=== PATIENT | male | born 1975 | race African-American/Black ===

== ENCOUNTER 2023-12-11 12:55 | Emergency (ER) | payer BC, SELFPAY ==
[2023-12-11 13:09] VITALS: BP 133/86; PULSE 85; TEMP 37; O2SAT 93; BMI 30.6
--- NOTE | 2023-12-11 13:22 | ED_ITS ---
HPI HPI - General Adult General Chief complaint: Upper Respiratory Infection Stated complaint: URTI COMPLAINTS Time Seen by Provider: 12/11/23 13:13 Source: patient Mode of arrival: walk-in Limitations: no limitations History of Present Illness HPI narrative: 48-year-old male presents to the emergency department for a chief complaint of congestion and cough. He is worried he has COVID. He was around somebody who was diagnosed with it. Symptoms began the night before last. No fever or productive cough. Related Data Home Medications ?Medication ?Instructions ?Recorded ?Confirmed duloxetine 60 mg capsule,delayed 60 mg PO QDAY 12/11/23 12/11/23 release empagliflozin 10 mg tablet 10 mg PO QDAY 12/11/23 12/11/23 (Jardiance) lisinopril 20 mg tablet 20 mg PO QDAY 12/11/23 12/11/23 metoprolol tartrate 50 mg tablet 50 mg PO BID 12/11/23 12/11/23 rivaroxaban 20 mg tablet (Xarelto) 20 mg PO Q24H 12/11/23 12/11/23 Allergies Allergy/AdvReac Type Severity Reaction Status Date / Time muscle relaxers Allergy Hallucinati Uncoded 12/11/23 13:06 ng Opioid HPI Opioid Management Most Recent Opioid Data: No Data to Display Review of Systems ROS Narrative A ten point review of systems is negative except as noted above. PFSH PFSH Social History Little interest or pleasure in doing things: not at all Feeling down, depressed, or hopeless: not at all Exam Narrative Exam Narrative: Nurses note and vital signs reviewed and patient is not hypoxic. General: The patient appears in no apparent distress. Patient is resting comfortably on cart. Skin: Warm, dry, no pallor noted. There is no rash noted. Head: Normocephalic, atraumatic Eye: Normal conjunctiva, no drainage Ears, Nose, Mouth, and Throat: oral mucosa is moist. Nares patent. Mild nasal congestion plus Cardiovascular: Regular Rate and Rhythm Respiratory: Patient is in no distress, no accessory muscle use, lungs are clear to auscultation, no wheezing, rales or rhonchi Back: non-tender GI: Soft and nontender Musculoskeletal: The patient has no evidence of calf tenderness, no pitting edema, symmetrical pulses noted bilaterally Neurological: A&O, normal speech Psychiatric: Cooperative Constitutional Vital Signs, click to edit/add: Last Vital Signs Temp 98.6 F 12/11/23 13:09 Pulse 85 12/11/23 13:09 Resp 16 12/11/23 13:09 BP 133/86 12/11/23 13:09 Pulse Ox 93 L 12/11/23 13:09 O2 Del Method Room Air 12/11/23 13:09 Course Vital Signs Vital signs: Vital Signs Temperature 98.6 F 12/11/23 13:09 Pulse Rate 85 12/11/23 13:09 Respiratory Rate 16 12/11/23 13:09 Blood Pressure 133/86 12/11/23 13:09 Pulse Oximetry 93 L 12/11/23 13:09 Oxygen Delivery Method Room Air 12/11/23 13:09 Temperature 98.6 F 12/11/23 13:09 Pulse Rate 85 12/11/23 13:09 Respiratory Rate 16 12/11/23 13:09 Blood Pressure 133/86 12/11/23 13:09 Pulse Oximetry 93 L 12/11/23 13:09 Oxygen Delivery Method Room Air 12/11/23 13:09 Medical Decision Making MDM Narrative Medical decision making narrative: COVID test is positive and he was informed. He is able to be discharged home. Follow-up with his doctor if needed. Treatment diagnosis and follow-up were discussed with the patient. Differential Diagnosis Differential Diagnosis: Viral URI, COVID, influenza Lab Data Lab results reviewed: Yes I reviewed the patient's lab results Labs: Lab Results 12/11/23 Range/Units 13:17 Influenza Type A Ag Negative Influenza Type B Ag Negative SARS-CoV-2 Ag (CV2AG) Positive A (NEGATIVE) Discharge Plan Discharge Chief Complaint: Upper Respiratory Infection Clinical Impression: COVID-19 Patient Disposition: Home, Self-Care Time of Disposition Decision: 14:01 Condition: Good Mode of Transportation: Private Vehicle Prescriptions / Home Meds: No Action duloxetine 60 mg capsule,delayed release(DR/EC) 60 mg PO QDAY Jardiance 10 mg tablet 10 mg PO QDAY lisinopril 20 mg tablet 20 mg PO QDAY metoprolol tartrate 50 mg tablet 50 mg PO BID Xarelto 20 mg tablet 20 mg PO Q24H Print Language: Albanian Instructions: COVID-19 (Coronavirus Disease 2019) (ED), COVID-19: Slow the Coronavirus Spread (ED), Face Coverings (Masks) and COVID-19 (ED) Referrals: Physician,Non-Staff, MD [Primary Care Provider] - 1 week
[2023-12-11 13:53] LABS: Influenza Virus A Antigen Negative; Influenza Virus B Antigen Negative; Internal Control Within Normal Limits
--- NOTE | 2023-12-11 13:53 | PC.NURSE ---
Pt reports positive covid exposure over the weekend and has x2 days of URI symptoms. Reports headache, cough, sore throat, congestion.
[2023-12-11 13:54] LABS: SARS-CoV-2 Ag POSITIVE (NEGATIVE)
[2023-12-11 14:15] VITALS: BP 136/76; PULSE 76; O2SAT 99
== END 2023-12-11 14:15 | disposition home or self-care (01) ==
PROVIDERS: Emergency Provider Emergency Medicine
DX: U07.1 COVID-19 (principal)
CPT/HCPCS: 87804; 87811; 99283

== ENCOUNTER 2024-04-14 22:43 | Emergency (ER) | payer BC, SELFPAY ==
--- OUTSIDE RECORDS SUMMARY | 2024-04-14 22:48 | XMS_ITS | CCD ---
Author Organization [facility] Care Team Providers Care Shift Supervisor Rn Name Role Phone LAURENT DELACRUZ Attending Unavailable CINDY BEE Primary Care Unavailable ARTURO HICKMAN Attending UnavailCINDY Phillips Primary Care Unavailable CINDY BEE Primary Care Unavailable ALBANIA ANNA Admitting Unavailable ALBANIA ANNA Attending Unavailable BASILIA LAZARO Consulting Unavailable SELF, REFERRED Referring Unavailable SELF, REFERRED Primary Care Unavailable MARCELLA INTERIANO Attending Unavailable MARCELLA INTERIANO Admitting Unavailable LANA SHERMAN Attending Unavailable LANA SHERMAN Admitting Unavailable Lana Sherman Unavailable Waqar Angulo Unavailable EDMOND Sherman Primary Care Provider MD Waqar Angulo Attending Provider Waqar Angulo Admitting UnavailWaqar Springer Attending UnavailLana Delgado Primary Care Unavailable Waqar Angulo Attending UnavailLana Delgado Primary Care Unavailable Waqar Angulo Admitting UnavailWaqar Springer Attending UnavailLana Delgado Primary Care Unavailable Waqar Angulo Admitting UnavailLana Delgado Primary Care Unavailable Asia Sawyer Admitting Unavailable Asia Sawyer Attending Unavailable Lana Sherman Primary Care Unavailable Tre Todd Admitting Unavailable Tre Todd Attending Unavailable Ramy LAWRENCE-Lana RAMIREZ Primary Care Provide r RAMY LANA J Primary Care Physician LANA SHERMAN Attending Unavailable RAMY, LANA Primary Care Unavailable RAMY, LANA Admitting Unavailable RAMY, LANA Admitting Unavailable RAMY, LANA Attending Unavailable RAMY, LANA Primary Care Unavailable RAMY, LANA Admitting Unavailable RAMY, LANA Attending Unavailable RAMY, LANA Primary Care Unavailable RAMY, LANA Primary Care Unavailable YENNI, NIXON DIANA Attending Unav ailable YENNI, NIXON DIANA Attending Unav ailable YENNI, NIXON DIANA Referring Unav ailable RAMY, LANA Primary Care Unavailable RAMY, LANA Primary Care Unavailable VANDANA LAMBERT Attending Unavailable LAMBERT, VANDANA Melvin Attending Unavailable LAMBERTVANDANA LLOYD Referring Unavailable RAMY, LANA Primary Care Unavailable RAMY, LANA Primary Care Unavailable IAN JONES Attending Unavailable KAREN, IAN Baez Attending Unavailable IAN JONES Referring Unavailable RAMY, LANA Primary Care Unavailable RASTA RAPP Attending Unavailable RAMY, LANA Referring Unavailable RAMY, LANA Primary Care Unavailable RASTA RAPP Referring Unavailable RAMY, LANA Primary Care Unavailable RAMY, LANA Primary Care Unavailable ROBERT EASON Attending Unavailable RAMY, LANA Primary Care Unavailable FABRICIO FELDMAN Attending Unavailabl e FRANCIA, FABRICIO [place] Attending Unavailabl e FABRICIO FELDMAN Referring Unavailabl e RAMY, LANA Primary Care Unavailable RAMY, LANA Primary Care Unavailable Allergies Allergy Classification Reported Allergen(s) Allergy Type Date of Onset Reaction(s) Facility Orphenadrine (1 source) Orphenadrine Drug Allergy [facility] Repository (12 sources) cyclobenzaprine Drug Allergy 01-29-20 13 hallucinating [facility] Repository (1 source) muscle relaxers; Translations: [muscle relaxers] Propensity to adverse reactions (disorder) 01-29-20 13 [facility] Repository (3 sources) cholesterol medication Allergy to substance 02-11-20 Muscle Pain [facility] (3 sources) muscle relaxer Allergy to substance 02-11-20 18 Hallucinating [facility] (3 sources) atorvastatin; Translations: [ATORVASTATIN CALCIUM] Drug Allergy 06-28-19 22 [facility] (3 sources) cyclobenzaprine; Translations: [CYCLOBENZAPRINE] Drug Allergy 11-26-19 17 Hallucinations [facility] Medications Current Medications Medication Drug Class(es) Dates Sig (Normalized) Sig (Original) acetaminophen 300 mg / codeine phosphate 30 mg oral tablet (3 sources) Opioid Agonist Start: 12-03-2020 take 1 tablet by mouth twice daily as needed for pain Acetaminophen-Code ine #3 300-30 MG 1 tablet Orally bid as needed for pain for 15 day(s) Nov, Active dexamethasone 4 mg oral tablet (8 sources) Corticosteroid Start: 06-13-2021 Dexamethasone 4 MG 3 tablets daily for 3 days then 2 tablets daily for 3 days then 1 tablet daily for 3 days Orally Once a day for 9 days Jun, Active diazePAM 10 mg oral tablet (11 sources) Benzodiazepine Start: 10-23-2020 diazePAM 10 MG 1 tablet Orally 30 min before MRI for 1 days Oct, Active DULoxetine 60 mg delayed release oral capsule (14 sources) Serotonin and Norepinephrine Reuptake Inhibitor Start: 04-06-2020 take 1 capsule by mouth every twenty-four hours DULoxetine HCl 30 MG 1 capsule Orally Once a day for 90 days Mar, Active Start: 04-06-2020 take 1 capsule by mo [facility] every twenty-four hours DULoxetine HCl 60 MG 1 capsule Orally Once a day for 30 days Mar, Active lisinopril 20 mg oral tablet (16 sources) Angiotensin Converting Enzyme Inhibitor Start: 02-10-2018 take 1 tablet by mouth once daily lisinopriL (PRINIVIL,ZESTRIL) 20 mg tablet Take 1 tablet (20 mg total) by mouth daily. Please have labs drawn for additional refills 30 tablet 0 09/11/2020 Active metoprolol tartrate 50 mg oral tablet (16 sources) beta-Adrenergic Cyril Start: 07-11-2021 take 1 tablet by mouth in the morning, then take 1 tablet by mouth at bedtime metoprolol tartrate (LOPRESSOR) 50 mg tablet Take 1 tablet (50 mg total) by mouth in the morning and 1 tablet (50 mg total) before bedtime. 90 tablet 3 07/11/2021 Active Start: 02-10-2018 take 25 mg by mouth twice jessica y Metoprolol Tartrate Active 25 MG PO Twice daily February 10, 2018 1:00am [facility] Test - (11 sources) Start: 10-05-2020 [facility] Test - as directed In Vitro daily for 90 days Sep, Active rivaroxaban 20 mg oral tablet (14 sources) Factor Xa Inhibitor Start: 09-16-2019 take 1 tablet by mouth once daily rivaroxaban (XARELTO) 20 mg tablet tablet Take 1 tablet (20 mg total) by mouth daily. 30 tablet 1 09/16/2019 Active Start: 07-30-2019 take 1 tablet by mouth once da dimas Xarelto 20 20 1 tablet PO Daily for 90 days July, Active True Metrix Blood Glucose Te st - (11 sources) Start: 10-05-2020 True Metrix Bl ood Glucose Test - as directed SQ bid for 30 day(s) Sep, Active True Metrix Meter w/Device (11 sources) Start: 10-05-[address] w/Device as directed SQ bid for 30 day(s) Sep, Active Completed/Discontinued Medications Medication Drug Class(es) Dates Sig (Normalized) Sig (Original) aspirin 81 mg chewable tablet (3 sources) Platelet Aggregation Inhibitor, Nonsteroidal Anti-inflammatory Drug Start: 02-10-2018 End: 12-17-2021 take 81 mg by mouth once daily Aspirin Discontinued 81 MG PO Daily February 10, 2018 1:00am December 17, 2021 7:37am fluticasone propionate 0.05 mg/actuat metered dose nasal spray (14 sources) Corticosteroid Start: 09-19-2019 take 1 spray(s) nasal route once daily Fluticasone Propionate 50 MCG/ACT 1 spray in each nostril Nasally Once a day for 90 days Sep, Not-Taking Start: 02-10-2018 End: 12-17-2021 Fluticasone Propionate Disco ntinued 50 MCG INTRANASAL Daily February 10, 2018 1:00am December 17, 2021 7:37am gabapentin 100 mg oral capsule (11 sources) Anti-epileptic Agent Start: 11-07-2019 take 1 capsule by mouth every twelve hours Gabapentin 100 MG 1 capsule Orally twice a day for 10 days Oct, Not-Taking meclizine hydrochloride 25 mg oral tablet (2 sources) Antiemetic Start: 01-28-2023 End: 03-23-2023 take 1 tablet by mouth three times daily as needed for dizziness meclizine (ANTIVERT) 25 mg tablet Take 1 tablet (25 mg total) by mouth 3 (three) times a day as needed for dizziness. 20 tablet 0 01/28/2023 03/23/2023 Discontinued (Therapy completed) 24 hr metFORMIN hydrochloride 500 mg extended release oral tablet (11 sources) Biguanide Start: 05-22-2020 take 1 tablet by mouth every twenty-four hours metFORMIN HCl ER 500 MG 1 Tablet BID w Food Once a day for 30 day(s) May, Not-Taking methylPREDNISolone acetate 80 mg/ml injectable suspension (16 sources) Corticosteroid Start: 10-09-2020 DEPO-Medrol Oct, 80 mg Start: 10-09-2020 Depo-Medrol 80 mg Oct, 80 mg Start: 11-21-2019 Depo-Medrol 20 mg Nov, 60 mg omeprazole 40 mg delayed release oral capsule (11 sources) Proton Pump Inhibitor Start: 2018 take 1 capsule by mouth every twenty-four hours Omeprazole 40 MG 1 capsule Orally Once a day for 90 days Apr, Not-Taking ondansetron 4 mg disintegrating oral tablet (2 sources) Serotonin-3 Receptor Antagonist Start: 01-28-2023 End: 03-23-2023 take 1 tablet by mouth every eight hours as needed for nausea ondansetron ODT (ZOFRAN ODT) 4 mg disintegrating tablet Dissolve 1 tablet (4 mg total) on tongue every 8 (eight) hours as needed for nausea for up to 10 doses. 10 tablet 0 01/28/2023 03/23/2023 Discontinued (Therapy completed) pioglitazone 15 mg oral tablet (11 sources) Peroxisome Proliferator Receptor alpha Agonist, Peroxisome Proliferator Receptor gamma Agonist, Thiazolidinedione Start: 05-22-2020 Actos 15 MG 1 tablet Orally at night for 30 day(s) May, Not-Taking sertraline 100 mg oral tablet (11 sources) Serotonin Reuptake Inhibitor take 1 tablet by mouth once daily Sertraline HCl 100 MG TAKE 1 TABLET BY MOUTH EVERY DAY Not-Taking simethicone 125 mg chewable tablet (3 sources) Start: 02-16-2018 End: 12-17-2021 take 4 tablets by mouth once daily Simethicone (Gas-X Extra Strength) 125 mg Tablet,Chewable Discontinued 4 TAB PO Daily February 16, 2018 1:00am December 17, 2021 7:38am Wrist Brace - (11 sources) Start: 11-21-2019 Wrist Brace - as directed 14 Nov, 2019 Not-Taking Problems Active Problems Problem Classification Problem Date Documented Da te Episodic/Chronic Anxiety disorders (15 sources) Anticipatory anxiety; Translations: [Generalized anxiety disorder] Onset: 01-03-2021 Resolved: 10-21-2021 Chronic Cardiac dysrhythmias (12 sources) Atrial fibrillation; Translations: [Unspecified atrial fibrillation] Onset: 07-10-2021 Resolved: 07-29-2021 Chronic Diabetes mellitus without complication (12 sources) Type 2 diabetes mellitus without complication; Translations: [Type 2 diabetes mellitus without complications] Onset: 01-03-2021 Resolved: 01-03-2021 Chronic Disorders of lipid metabolism (4 sources) Hyperlipidemia; Translations: [Hyperlipidemia, unspecified] Onset: 05-13-2017 05-13-2017 Chronic Esophageal disorders (11 sources) Acid reflux; Translations: [Gastro-esophageal reflux disease without esophagitis] Chronic Essential hypertension (20 sources) Essential hypertension; Translations: [Essential (primary) hypertension] Onset: 06-08-2017 Resolved: 10-21-2021 Chronic Nonspecific chest pain (2 sources) Chest pain; Translations: [Chest pain, unspecified] 05-13-2017 Episodic Other gastrointestinal disorders (14 sources) Dysphagia; Translations: [Dysphagia, unspecified] 02-16-2018 Episodic Other gastrointestinal disorders (11 sources) Constipation; Translations: [Constipation, unspecified] Episodic Other gastrointestinal disorders (1 source) Stool DNA-based colorectal cancer screening positive; Translations: [Other fecal abnormalities] 12-17-2021 Episodic Other gastrointestinal disorders (2 sources) Other fecal abnormalities; Translations: [Abnormal feces] Onset: 12-17-2021 12-17-2021 Episodic Other nervous system disorders (11 sources) Carpal tunnel syndrome; Translations: [Carpal tunnel syndrome, bilateral upper limbs] Chronic Other nervous system disorders (8 sources) Carpal tunnel syndrome of left wrist; Translations: [Carpal tunnel syndrome, left upper limb] Chronic Other nervous system disorders (1 source) Carpal tunnel syndrome, bilateral upper limbs Onset: 06-13-2021 Resolved: 06-13-2021 Chronic Other nervous system disorders (2 sources) Carpal tunnel syndrome of right wrist; Translations: [Carpal tunnel syndrome, right upper limb] Onset: 11-30-2009 07-10-2021 Chronic Other upper respiratory disease (11 sources) Rhinitis; Translations: [Chronic rhinitis] Chronic Spondylosis; intervertebral disc disorders; other back problems (17 sources) Prolapsed cervical intervertebral disc; Translations: [Other cervical disc displacement, unspecified cervical region] Onset: 06-13-2021 Resolved: 06-13-2021 Chronic Unclassified (1 source) Cold Like Symptoms Onset: 05-11-2023 Unclassified (1 source) Cold Symptoms Onset: 05-11-2023 Unclassified (1 source) Low back pain, unspecified; Translations: [Low back pain, unspecified] Onset: 04-11-2023 Viral infection (1 source) COVID-19; Translations: [COVID-19] Onset: 12-10-2023 Past or Other Problems Problem Classification Problem Date Documented Date Episodic/Chronic Abdominal pain (1 source) Epigastric pain; Translations: [Epigastric pain] Onset: 4 Episodic Cardiac dysrhythmias (2 sources) Palpitations; Translations: [Palpitations] Onset: 8 05-14-2017 Episodic Conditions associated with dizziness or vertigo (2 sources) Dizziness; Translations: [Dizziness and giddiness] Onset: 8 05-14-2017 Episodic Coronary atherosclerosis and other heart disease (2 sources) Coronary arteriosclerosis; 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] Onset: 8 Resolved: 8 05-14-2017 Chronic Nausea and vomiting (2 sources) Nausea; Translations: [Nausea] Onset: 4 Episodic Other lower respiratory disease (1 source) Cough Onset: 4 Episodic Other lower respiratory disease (1 source) Shortness of breath; Translations: [Shortness of breath] Onset: 4 Episodic Other non-traumatic joint disorders (1 source) Pain in left shoulder; Translations: [Arthralgia of left acromioclavicular joint M25.512] Onset: 1 Resolved: 1 Episodic Pneumonia (except that caused by tuberculosis or sexually transmitted disease) (1 source) Pneumonia, unspecified organism; Translations: [Pneumonia, unspecified organism] Onset: 4 Episodic Spondylosis; intervertebral disc disorders; other back problems (10 sources) Cervical disc prolapse with radiculopathy; Translations: [Cervical disc disorder with radiculopathy, unspecified cervical region] Onset: 4 Episodic Results Test Name Value Interpretation Reference Range Facility SARS[facility]FL[facility] SARS/FLU A+B/RSV by NAAT/Molecular FLU A PCR Negative (qualifier value) FLU B PCR Negative (qualifier value) RSV by PCR Negative (qualifier value) SARS CoV 2 Detected (qualifier value) NOTE The Xpert Xpress SARS-CoV-2/Flu/RSV Plus test is a rapid, multiplexed real-time RT-PCR test intended for the simultaneous qualitative detection and differentiation of SARS-CoV-2, influenza A, influenza B and respiratory syncytial virus (RSV) viral RNA from individuals suspected of respiratory viral infection consistent with COVID-19 by their healthcare provider. This test has not been validated in asymptomatic patients. The Xpert Xpress SARS-CoV-2 test is intended for use by qualified and trained operators who are performing tests using either [employer] or [employer] systems and is limited to laboratories that meet the CLIA requirements to perform high and moderate complexity tests. The Xpert Xpress SARS-CoV-2/Flu/RSV Plus is only for use under the Food and Drug Administration's Emergency Use Authorization. Results are for the simultaneous detection and differentiation of SARS-CoV-2, influenza A, influenza B and RSV nucleic acids in clinical specimens. SARS-CoV-2, influenza A, influenza B and RSV RNA identified by this test are generally detectable in upper respiratory samples during the acute phase of infection. Positive results are indicative of the presence of the identified virus, but do not rule out bacterial infection or co-infection with other pathogens not detected by this test. Clinical correlation with patient history and other diagnostic information is necessary to determine patient infection status. The agent detected may not be the definite cause of disease. Negative results do not preclude SARS-CoV-2, influenza A, influenza B and RSV infection and should not be used as the sole basis for treatment or other patient management decisions. Negative results must be combined with clinical observations, patient history and epidemiological information. An Invalid result may occur with specimen-associated inhibition unable to be resolved with specimen repeat. Fact Sheet for Healthcare Providers: https://www.fda.gov/ media/386660/downloa d Fact Sheet for Patients: https://www.fda.gov/ media/218681/downloa d [facility] Comment on above: Performed By: #### N UM #### [facility] ([id number]) [address] [place] [address] XR CHEST 1 VWon 12-10-2023 XR CHEST 1 VW XR CHEST 1 VW Clinical history: Cough Views: 1 Comparison: 05/22/2023 Findings/Impression: 1. No acute infiltrate. No volume loss nor consolidation. There is no pleural effusion, pneumothorax, nor volume loss. Heart and mediastinal structures are unremarkable. Pulmonary vasculature stable. 2. Interval resolution of previously present nodular opacities overlying the each lung. 3. No new nor advancing abnormality. Finalized by Ministerio Abebe MD on 12/10/2023 6:05 PM Normal [facility] CMPon 12-01-2023 Albumin [Mass/Vol] 4.3 g/dL Normal 3.3-5.0 [facility] Comment on above: Performed By: #### 2 [id number] #### [facility] [address] [place] [address] Albumin/Globulin (S) [Mass conc ratio] 1.7 Normal 1.1-2.2 [facility] Comment on above: Performed By: #### 2 [id number] #### [facility] [address] [place] [address] ALP [Catalytic activity/Vol] 66 Int._Unit/L Normal 21-98 [facility] Comment on above: Performed By: #### 2 [id number] #### [facility] [address] [place] [address] ALT No additional P-5'-P [Catalytic activity/Vol] 40 Int._Unit/L Normal 6-46 [facility] Comment on above: Performed By: #### 2 [id number] #### [facility] [address] [place] [address] Anion gap [Moles/Vol] 10 mmol/L Normal 6-16 [facility] Comment on above: Performed By: #### 2 [id number] #### [facility] [address] [place] [address] AST [Catalytic activity/Vol] 24 Int._Unit/L Normal 5-43 [facility] Comment on above: Performed By: #### 2 [id number] #### [facility] [address] [place] [address] Bilirubin [Mass/Vol] 0.4 mg/dL Normal 0.0-1.1 [facility] Comment on above: Performed By: #### 2 [id number] #### [facility] [address] [place] [address] Calcium [Mass/Vol] 8.7 mg/dL Low 8.9-11.1 [facility] Comment on above: Performed By: #### 2 [id number] #### [facility] [address] [place] [address] Chloride [Moles/Vol] 103 mmol/L Normal 101-111 [facility] Comment on above: Performed By: #### 2 [id number] #### [facility] [address] [place] [address] CO2 [Moles/Vol] 27 mmol/L Normal 21-31 [facility] Comment on above: Performed By: #### 2 [id number] #### [facility] [address] [place] [address] Creatinine [Mass/Vol] 0.9 mg/dL Normal 0.5-1.3 [facility] Comment on above: Performed By: #### 2 [id number] #### [facility] [address] [place] [address] Globulin (S) [Mass/Vol] 2.5 g/dL Normal 1.4-4.0 [facility] Comment on above: Performed By: #### 2 [id number] #### [facility] [address] [place] [address] Glucose [Mass/Vol] 181 mg/dL Normal 55-199 [facility] Comment on above: Performed By: #### 2 [id number] #### [facility] [address] [place] [address] Potassium [Moles/Vol] 4.0 mmol/L Normal 3.5-5.3 [facility] Comment on above: Performed By: #### 2 [id number] #### [facility] [address] [place] [address] Protein [Mass/Vol] 6.8 g/dL Normal 6.0-7.8 [facility] Comment on above: Performed By: #### 2 [id number] #### [facility] [address] [place] [address] Sodium [Moles/Vol] 136 mmol/L Normal 135-145 [facility] Comment on above: Performed By: #### 2 [id number] #### [facility] [address] [place] [address] Urea nitrogen [Mass/Vol] 11 mg/dL Normal 5-21 [facility] Comment on above: Performed By: #### 2 [id number] #### [facility] [address] [place] [address] Urea nitrogen/Creatinine [Mass ratio] 12 No Units Normal 10-20 [facility] Comment on above: Performed By: #### 2 [id number] #### [facility] [address] [place] [address] Lipid Panelon 12-01-2023 Cholesterol [Mass/Vol] 205 mg/dL High 120-200 [facility] Comment on above: Performed By: #### 2 [id number] #### [facility] [address] [place] [address] Cholesterol in HDL [Mass/Vol] 43 mg/dL Invalid Interpretation Code [facility] Comment on above: Result Comment: '>= 60 LOW RISK' '<= 40 HIGH RISK' Performed By: #### 2 [id number] #### [facility] [address] [place] [address] Cholesterol in LDL [Mass/Vol] 130 mg/dL High <=129 [facility] Comment on above: Performed By: #### 2 [id number] #### [facility] [address] [place] [address] Cholesterol in VLDL [Mass/Vol] 55 mg/dL High 7-40 [facility] Comment on above: Performed By: #### 2 [id number] #### [facility] [address] [place] [address] Triglyceride [Mass/Vol] 273 mg/dL High <=149 [facility] Comment on above: Performed By: #### 2 [id number] #### [facility] [address] [place] [address] eGFRon 12-01-2023 eGFR 105 mL/min/1.73 m2 Normal >=59 [facility] Comment on above: Performed By: #### 1 [id number] #### [facility] [address] [place] [address] Consent for Treatmenton 05-08 Consent for Treatment [id number] #[id number] Normal [facility] Physician Orderon 06-01-2023 Physician Order [id number] #1.00TIFF Normal [facility] XR Chest 2 Viewson XR Chest 2 Views Exam Date/Time: 06/01/2023 10:49 EDT Reason for Exam: J18.9 Report [facility] [phone] IMPRESSION: There are no acute changes. CLINICAL HISTORY: J18.9 EXAMINATION: XR Chest 2 Views COMPARISON: There are no recent relevant prior studies for comparison FINDINGS: The cardiomediastinal silhouette is unremarkable. The lungs are free of infiltrates effusions or consolidations. There is linear scarring in the midportion of the left lung. There are no acute osseous changes. Ordering Provider: , FINAL REPORT Dictated: 06/01/2023 11:54 am Damian Hernandez MD, V. Signed (Electronic Signature): 06/01/2023 11:54 am Signed by: Damian Hernandez MD, V. Transcribed by: YARITZA Technologist: MIRNA Technical Comments Radiation Dose: Ka,r in mGy = . DAP = . Normal [facility] SARS/FLU A+B/RSV by NAAT/Mol ecularon 05-22-2023 SARS/FLU A+B/RSV by NAAT/Molecular FLU A PCR Negative (qualifier value) FLU B PCR Negative (qualifier value) RSV by PCR Negative (qualifier value) SARS CoV 2 Not detected (qualifier value) NOTE The Xpert Xpress SARS-CoV-2/Flu/RSV Plus test is a rapid, multiplexed real-time RT-PCR test intended for the simultaneous qualitative detection and differentiation of SARS-CoV-2, influenza A, influenza B and respiratory syncytial virus (RSV) viral RNA from individuals suspected of respiratory viral infection consistent with COVID-19 by their healthcare provider. This test has not been validated in asymptomatic patients. The Xpert Xpress SARS-CoV-2 test is intended for use by qualified and trained operators who are performing tests using either [facility] or [employer] systems and is limited to laboratories that meet the CLIA requirements to perform high and moderate complexity tests. The Xpert Xpress SARS-CoV-2/Flu/RSV Plus is only for use under the Food and Drug Administration's Emergency Use Authorization. Results are for the simultaneous detection and differentiation of SARS-CoV-2, influenza A, influenza B and RSV nucleic acids in clinical specimens. SARS-CoV-2, influenza A, influenza B and RSV RNA identified by this test are generally detectable in upper respiratory samples during the acute phase of infection. Positive results are indicative of the presence of the identified virus, but do not rule out bacterial infection or co-infection with other pathogens not detected by this test. Clinical correlation with patient history and other diagnostic information is necessary to determine patient infection status. The agent detected may not be the definite cause of disease. Negative results do not preclude SARS-CoV-2, influenza A, influenza B and RSV infection and should not be used as the sole basis for treatment or other patient management decisions. Negative results must be combined with clinical observations, patient history and epidemiological information. An Invalid result may occur with specimen-associated inhibition unable to be resolved with specimen repeat. Fact Sheet for Healthcare Providers: https://www.fda.gov/ media/081578/downloa d Fact Sheet for Patients: https://www.fda.gov/ media/192860/downloa d [facility] Comment on above: Performed By: #### C BCA, BMP #### [facility] ([id number]) [address] [place] [address], [place] [address] XR CHEST 2 VWSon 05-22-2023 XR CHEST 2 VWS XR CHEST 2 VWS XR CHEST 2 VWS 05/22/2023 5:58 PM INDICATION: Previous documented pneumonia COMPARISON: Priors dating back to 03/25/2019 TECHNIQUE: PA and lateral views of the chest were obtained FINDINGS: Redemonstration of multifocal nodular opacities projecting over the mid lungs bilaterally, nonspecific but favored to represent multifocal pneumonia in the appropriate clinical setting.There is no pneumothorax. There is no pleural effusion. The cardiomediastinal silhouette is unremarkable. No acute osseous abnormalities. IMPRESSION: Redemonstration of multifocal nodular opacities projecting over the mid lungs bilaterally, nonspecific but favored to represent multifocal pneumonia in the appropriate clinical setting. No significant interval changes. Finalized by Armando Interiano on 05/22/2023 6:04 PM Normal [facility] SARS/FLU A+B/RSV by NAAT/Mol ecularon 05-15-2023 SARS/FLU A+B/RSV by NAAT/Molecular FLU A PCR Negative (qualifier value) FLU B PCR Negative (qualifier value) RSV by PCR Negative (qualifier value) SARS CoV 2 Not detected (qualifier value) NOTE The Xpert Xpress SARS-CoV-2/Flu/RSV Plus test is a rapid, multiplexed real-time RT-PCR test intended for the simultaneous qualitative detection and differentiation of SARS-CoV-2, influenza A, influenza B and respiratory syncytial virus (RSV) viral RNA from individuals suspected of respiratory viral infection consistent with COVID-19 by their healthcare provider. This test has not been validated in asymptomatic patients. The Xpert Xpress SARS-CoV-2 test is intended for use by qualified and trained operators who are performing tests using either [employer] or [employer] systems and is limited to laboratories that meet the CLIA requirements to perform high and moderate complexity tests. The Xpert Xpress SARS-CoV-2/Flu/RSV Plus is only for use under the Food and Drug Administration's Emergency Use Authorization. Results are for the simultaneous detection and differentiation of SARS-CoV-2, influenza A, influenza B and RSV nucleic acids in clinical specimens. SARS-CoV-2, influenza A, influenza B and RSV RNA identified by this test are generally detectable in upper respiratory samples during the acute phase of infection. Positive results are indicative of the presence of the identified virus, but do not rule out bacterial infection or co-infection with other pathogens not detected by this test. Clinical correlation with patient history and other diagnostic information is necessary to determine patient infection status. The agent detected may not be the definite cause of disease. Negative results do not preclude SARS-CoV-2, influenza A, influenza B and RSV infection and should not be used as the sole basis for treatment or other patient management decisions. Negative results must be combined with clinical observations, patient history and epidemiological information. An Invalid result may occur with specimen-associated inhibition unable to be resolved with specimen repeat. Fact Sheet for Healthcare Providers: https://www.fda.gov/ media/083456/downloa d Fact Sheet for Patients: https://www.fda.gov/ media/814642/downloa d [facility] Comment on above: Performed By: #### C NIDA, [facility] #### [facility] ([id number]) [address] [place] [address], [place] [address] XR CHEST 1 VWon 05-15-2023 XR CHEST 1 VW XR CHEST 1 VW HISTORY: A defined nodular like opacities in the both mid lung hussein. Appearance is suggestive of multifocal pneumonia. No pleural effusions are seen. There is no evidence of pneumothorax. EXAM/TECHNIQUE: CHEST: Portable upright AP view COMPARISON: Comparison is made with prior chest radiographs of 05/03/2023 and 05/12/2023. FINDINGS: Few nodular like opacities are seen in the left mid and the The cardiac silhouette is within normal limits. The trachea is in midline. The mediastinum is otherwise unremarkable. The hemidiaphragms are normal in position. The bony rib cage is intact. IMPRESSION: * Multifocal pneumonia involving the both mid lung hussein. There has been interval increase in the size of nodular opacities since prior study of 05/12/2023. Progress study is recommended. Finalized by Thiago Villanueva MD on 05/15/2023 9:26 AM Normal [facility] CBC AND AUTO DIFFon 05-12-19 24 ABSOLUTE BASOPHIL 0.1 X10E9/L Normal 0.0-0.2 [facility] Comment on above: Performed By: #### C BEBO ALVA, 31953-3 #### [facility] ([id number]) [address] [place] [address] 67606 Band form neutrophils/100 WBC (Bld) 1.9 % Normal [facility] Comment on above: Performed By: #### Niki ALVA CMP, 18525-7 #### [facility] ([id number]) [address] [place] [address] 08377 Basophils/100 WBC (Bld) 1.0 % Normal [facility] Comment on above: Performed By: #### Niki ALVA CMP, 00569-6 #### [facility] ([id number]) [address] [place] [address] 48796 Erythrocyte distribution width (RBC) [Ratio] 13.7 % Normal 11.5-15.0 [facility] Comment on above: Performed By: #### Niki ALVA CMP, 40670-1 #### [facility] ([id number]) [address] [place] [address] 64701 Hematocrit (Bld) [Volume fraction] 38.3 % Low 39-49 [facility] Comment on above: Performed By: #### Niki ALVA CMP, 76260-6 #### [facility] ([id number]) [address] [place] [address] Hemoglobin (Bld) [Mass/Vol] 12.9 g/dL Low 13.0-17.0 [facility] Comment on above: Performed By: #### Niki ALVA CMP, 99308-7 #### [facility] ([id number]) [address] [place] [address] 44441 Lymphocytes (Bld) [#/Vol] 2.1 10*3/uL Normal 1.0-3.5 [facility] Comment on above: Performed By: #### Niki ALVA CMP, 43719-4 #### [facility] ([id number]) [address] [place] [address] 25733 Lymphocytes/100 WBC (Bld) 14.3 % Normal [facility] Comment on above: Performed By: #### Niki ALVA CMP, 50661-9 #### [facility] ([id number]) [address] [place] [address] 82970 MCH (RBC) [Entitic mass] 29.7 pg Normal 27-34 [facility] Comment on above: Performed By: #### Niki ALVA CMP, 93087-0 #### [facility] ([id number]) [address] [place] [address] 32455 MCHC (RBC) [Mass/Vol] 33.7 g/dL Normal 32-36 [facility] Comment on above: Performed By: #### Niki ALVA CMP, 73166-1 #### [facility] ([id number]) [address] [place] [address] 78980 MCV (RBC) [Entitic vol] 88 fL Normal 80-100 [facility] Comment on above: Performed By: #### Niki ALVA CMP, 07681-5 #### [facility] ([id number]) [address] [place] [address] 92499 Monocytes (Bld) [#/Vol] 1.1 10*3/uL High 0-0.9 [facility] Comment on above: Performed By: #### Niki ALVA CMP, 97296-2 #### [facility] ([id number]) [address] [place] [address] 97778 Monocytes/100 WBC (Bld) 7.6 % Normal [facility] Comment on above: Performed By: #### Niki ALVA CMP, 51739-3 #### [facility] ([id number]) [address] [place] [address] 59035 Neutrophils (Bld) [#/Vol] 11.1 10*3/uL High 1.5-6.6 [facility] Comment on above: Performed By: #### Niki ALVA CMP, 38940-5 #### [facility] ([id number]) [address] [place] [address] 98344 Platelet mean volume (Bld) [Entitic vol] 7.2 fL Normal 7-12 [facility] Comment on above: Performed By: #### Niki ALVA CMP, 74311-9 #### [facility] ([id number]) [address] [place] [address] 48169 Platelets (Bld) [#/Vol] 220 10*3/uL Normal 150-450 [facility] Comment on above: Performed By: #### Niki ALVA CMP, 49740-0 #### [facility] ([id number]) [address] [place] [address] 21460 RBC COUNT 4.35 X10E12/L Normal 4.10-5.70 [facility] Comment on above: Performed By: #### Niki ALVA, CMP, 66163-9 #### [facility] ([id number]) [address] [place] [address] 52181 RBC morphology finding Nom (Bld) NORMAL Normal [facility] Comment on above: Performed By: #### Niki ALVA, CMP, 57679-0 #### [facility] ([id number]) [address] [place] [address] 59262 SEG NEUTROPHIL 75.2 % Normal [facility] Comment on above: Performed By: #### C NIDA, CMP, 90164-1 #### [facility] ([id number]) [address] [place] [address] 66173 WBC (Bld) [#/Vol] 14.4 10*3/uL High 4.0-11.0 [facility] Comment on above: Performed By: #### C NIDA, CMP, 81686-6 #### [facility] ([id number]) [address] [place] [address] 75664 COMPREHENSIVE METABOLIC PANE Avery 05-12-2023 Albumin [Mass/Vol] 3.8 g/dL Normal 3.2-5.3 [facility] Comment on above: Performed By: #### C NIDA, BMP #### [facility] ([id number]) [address] [place] [address] 97153 ALP [Catalytic activity/Vol] 96 U/L Normal 39-130 [facility] Comment on above: Performed By: #### C BCA, BMP #### [facility] ([id number]) [address] [place] [address] 22939 ALT [Catalytic activity/Vol] 143 U/L High 0-40 [facility] Comment on above: Performed By: #### C BCA, BMP #### [facility] ([id number]) [address] [place] [address] 83546 Anion gap [Moles/Vol] 6 mmol/L Normal 5-15 [facility] Comment on above: Performed By: #### C BCA, BMP #### [facility] ([id number]) [address] [place] [address] 25231 AST [Catalytic activity/Vol] 93 U/L High 0-41 [facility] Comment on above: Performed By: #### C BCA, BMP #### [facility] ([id number]) [address] [place] [address] 15871 Bilirubin [Mass/Vol] 0.5 mg/dL Normal 0.3-1.2 [facility] Comment on above: Performed By: #### C BCA, BMP #### [facility] ([id number]) [address] [place] [address] 23472 Calcium [Mass/Vol] 8.5 mg/dL Normal 8.5-10.5 [facility] Comment on above: Performed By: #### C BCA, BMP #### [facility] ([id number]) [address] [place] [address] 62652 Chloride [Moles/Vol] 104 mmol/L Normal 98-109 [facility] Comment on above: Performed By: #### C BCA, BMP #### [facility] ([id number]) [address] [place] [address] 87294 CO2 [Moles/Vol] 25 mmol/L Normal 22-32 [facility] Comment on above: Performed By: #### C BCA, BMP #### [facility] ([id number]) [address] [place] [address] 42358 Creatinine [Mass/Vol] 0.77 mg/dL Normal 0.70-1.20 [facility] Comment on above: Result Comment: METH OD TRACEABLE TO IDMS STANDARD Performed By: #### C BCA, BMP #### [facility] ([id number]) [address] [place] [address] 31573 eGFR (CKD-EPI) NON-RACE DEPENDENT >90 Normal >59 [facility] Comment on above: Result Comment: Reported eGFR is based on the CKD-EPI 2020 equation that does not use a race coefficient. Performed By: #### C BCA, BMP #### [facility] ([id number]) [address] [place] [address] 04117 Glucose [Mass/Vol] 125 mg/dL High 65-99 [facility] Comment on above: Performed By: #### C NIDA, BMP #### [facility] ([id number]) [address] [place] [address] 75142 Potassium [Moles/Vol] 3.4 mmol/L Low 3.5-5.0 [facility] Comment on above: Performed By: #### C NIDA, BMP #### [facility] ([id number]) [address] [place] [address] 90952 Protein [Mass/Vol] 7.4 g/dL Normal 6.0-8.0 [facility] Comment on above: Performed By: #### C NIDA, BMP #### [facility] ([id number]) [address] [place] [address] 34523 Sodium [Moles/Vol] 135 mmol/L Normal 134-146 [facility] Comment on above: Performed By: #### C NIDA, BMP #### [facility] ([id number]) [address] [place] [address] 48096 Urea nitrogen [Mass/Vol] 9 mg/dL Normal 5-23 [facility] Comment on above: Performed By: #### C NIDA, BMP #### [facility] ([id number]) [address] [place] [address] 41491 RAPID STREP SCR NURSINGon S. pyogenes Ag EIA Ql (Throat) Negative Normal NEG [facility] Comment on above: Performed By: #### C NIDA, BMP #### [facility] ([id number]) [address] [place] [address] 80092 SARS/FLU A+B/RSV by NAAT/Mol ecularon 05-12-2023 SARS/FLU A+B/RSV by NAAT/Molecular FLU A PCR Negative (qualifier value) FLU B PCR Negative (qualifier value) RSV by PCR Negative (qualifier value) SARS CoV 2 Not detected (qualifier value) NOTE The Xpert Xpress SARS-CoV-2/Flu/RSV Plus test is a rapid, multiplexed real-time RT-PCR test intended for the simultaneous qualitative detection and differentiation of SARS-CoV-2, influenza A, influenza B and respiratory syncytial virus (RSV) viral RNA from individuals suspected of respiratory viral infection consistent with COVID-19 by their healthcare provider. This test has not been validated in asymptomatic patients. The Xpert Xpress SARS-CoV-2 test is intended for use by qualified and trained operators who are performing tests using either [employer] or [employer] systems and is limited to laboratories that meet the CLIA requirements to perform high and moderate complexity tests. The Xpert Xpress SARS-CoV-2/Flu/RSV Plus is only for use under the Food and Drug Administration's Emergency Use Authorization. Results are for the simultaneous detection and differentiation of SARS-CoV-2, influenza A, influenza B and RSV nucleic acids in clinical specimens. SARS-CoV-2, influenza A, influenza B and RSV RNA identified by this test are generally detectable in upper respiratory samples during the acute phase of infection. Positive results are indicative of the presence of the identified virus, but do not rule out bacterial infection or co-infection with other pathogens not detected by this test. Clinical correlation with patient history and other diagnostic information is necessary to determine patient infection status. The agent detected may not be the definite cause of disease. Negative results do not preclude SARS-CoV-2, influenza A, influenza B and RSV infection and should not be used as the sole basis for treatment or other patient management decisions. Negative results must be combined with clinical observations, patient history and epidemiological information. An Invalid result may occur with specimen-associated inhibition unable to be resolved with specimen repeat. Fact Sheet for Healthcare Providers: https://www.fda.gov/ media/976812/downloa d Fact Sheet for Patients: https://www.fda.gov/ media/845849/downloa d [facility] Comment on above: Performed By: #### C NIDA, [facility] #### [facility] ([id number]) [address] [place] [address] 34427 TROPONIN Ion 05-12-2023 Troponin I.cardiac [Mass/Vol] 0.02 ng/mL Normal 0.00-0.04 [facility] Comment on above: Performed By: #### C NIDA, BMP #### [facility] ([id number]) [address] [place] [address] 35611 XR CHEST 2 VWSon 05-12-2023 XR CHEST 2 VWS XR CHEST 2 VWS HISTORY: Shortness of breath, cough COMPARISON: Chest x-ray 05/03/2023 FINDINGS: PA and lateral views of the chest were obtained. Interval development of bilateral upper lobe opacities. No pleural effusion or pneumothorax. No overt congestion. Normal-sized heart. IMPRESSION: * Multifocal pneumonia. Finalized by Toy Cruz MD on 05/12/2023 12:34 AM Normal [facility] CBC AND AUTO DIFFon 05-03-19 ABSOLUTE BASOPHIL 0.0 X10E9/L Normal 0.0-0.2 [facility] Comment on above: Performed By: #### C NIDA, CMP, 3040-3, 31952-3 #### [facility] ([id number]) [address] [place] [address] 61519 ABSOLUTE NEUTROPHIL 7.7 X10E9/L High 1.5-6.6 [facility] Comment on above: Performed By: #### C BCA, CMP, 3040-3, 16317-9 #### [facility] ([id number]) [address] [place] [address] 54843 Basophils/100 WBC (Bld) 0.2 % Normal [facility] Comment on above: Performed By: #### C BCA, CMP, 3040-3, 58528-2 #### [facility] ([id number]) [address] [place] [address] 86329 Eosinophils (Bld) [#/Vol] 0.1 10*3/uL Normal 0.0-0.4 [facility] Comment on above: Performed By: #### C BEBO ALVA, 3040-3, 53578-6 #### [facility] ([id number]) [address] [place] [address] 31692 Eosinophils/100 WBC (Bld) 0.5 % Normal [facility] Comment on above: Performed By: #### Niki ALVA CMP, 3040-3, 20952-7 #### [facility] ([id number]) [address] [place] [address] 76698 Erythrocyte distribution width (RBC) [Ratio] 13.5 % Normal 11.5-15.0 [facility] Comment on above: Performed By: #### Niki ALVA CMP, 3040-3, 25292-0 #### [facility] ([id number]) [address] [place] [address] 95033 Hematocrit (Bld) [Volume fraction] 42.1 % Normal 39-49 [facility] Comment on above: Performed By: #### Niki ALVA CMP, 3040-3, 29295-2 #### [facility] ([id number]) [address] [place] [address] 05054 Hemoglobin (Bld) [Mass/Vol] 14.5 g/dL Normal 13.0-17.0 [facility] Comment on above: Performed By: #### Niki ALVA CMP, 3040-3, 64407-9 #### [facility] ([id number]) [address] [place] [address] 39690 Lymphocytes (Bld) [#/Vol] 0.7 10*3/uL Low 1.0-3.5 [facility] Comment on above: Performed By: #### Niki ALVA CMP, 3040-3, 02467-9 #### [facility] ([id number]) [address] [place] [address] 78862 Lymphocytes/100 WBC (Bld) 7.1 % Normal [facility] Comment on above: Performed By: #### C NIDA CMP, 3040-3, 72181-0 #### [facility] ([id number]) [address] [place] [address] 92874 MCH (RBC) [Entitic mass] 30.3 pg Normal 27-34 [facility] Comment on above: Performed By: #### C NIDA CMP, 3040-3, 09138-6 #### [facility] ([id number]) [address] [place] [address] 51925 MCHC (RBC) [Mass/Vol] 34.4 g/dL Normal 32-36 [facility] Comment on above: Performed By: #### C NIDA, CMP, 3040-3, 26650-9 #### [facility] ([id number]) [address] [place] [address] 22274 MCV (RBC) [Entitic vol] 88 fL Normal 80-100 [facility] Comment on above: Performed By: #### C NIDA, CMP, 3040-3, 98609-9 #### [facility] ([id number]) [address] [place] [address] 38983 Monocytes (Bld) [#/Vol] 0.8 10*3/uL Normal 0-0.9 [facility] Comment on above: Performed By: #### Niki ALVA, CMP, 3040-3, 17508-3 #### [facility] ([id number]) [address] [place] [address] 94628 Monocytes/100 WBC (Bld) 8.9 % Normal [facility] Comment on above: Performed By: #### C NIDA, CMP, 3040-3, 85213-8 #### [facility] ([id number]) [address] [place] [address] 27107 Neutrophils/100 WBC (Bld) 83.3 % Normal [facility] Comment on above: Performed By: #### C BCA, CMP, 3040-3, 38772-8 #### [facility] ([id number]) [address] [place] [address] 28805 Platelet mean volume (Bld) [Entitic vol] 7.8 fL Normal 7-12 [facility] Comment on above: Performed By: #### C NIDA, CMP, 3040-3, 51108-6 #### [facility] ([id number]) [address] [place] [address] 67644 Platelets (Bld) [#/Vol] 178 10*3/uL Normal 150-450 [facility] Comment on above: Performed By: #### Niki ALVA, CMP, 3040-3, 22804-3 #### [facility] ([id number]) [address] [place] [address] 80289 RBC COUNT 4.79 X10E12/L Normal 4.10-5.70 [facility] Comment on above: Performed By: #### C NIDA, CMP, 3040-3, 24278-6 #### [facility] ([id number]) [address] [place] [address] 00539 WBC (Bld) [#/Vol] 9.2 10*3/uL Normal 4.0-11.0 [facility] Comment on above: Performed By: #### C BCA, CMP, 3040-3, 84396-4 #### [facility] ([id number]) [address] [place] [address] 46167 COMPREHENSIVE METABOLIC PANE Avery 05-03-2023 Albumin [Mass/Vol] 4.3 g/dL Normal 3.2-5.3 [facility] Comment on above: Performed By: #### C BCA, CMP, 3040-3, 52497-7 #### [facility] ([id number]) [address] [place] [address] 57352 ALP [Catalytic activity/Vol] 58 U/L Normal 39-130 [facility] Comment on above: Performed By: #### C NIDA, CMP, 3040-3, 16204-1 #### [facility] ([id number]) [address] [place] [address] 59812 ALT [Catalytic activity/Vol] 42 U/L High 0-40 [facility] Comment on above: Performed By: #### C BCA, CMP, 3040-3, 12977-6 #### [facility] ([id number]) [address] [place] [address] 03629 Anion gap [Moles/Vol] 5 mmol/L Normal 5-15 [facility] Comment on above: Performed By: #### C NIDA, CMP, 3040-3, 25310-9 #### [facility] ([id number]) [address] [place] [address] 29038 AST [Catalytic activity/Vol] 30 U/L Normal 0-41 [facility] Comment on above: Performed By: #### C NIDA, CMP, 3040-3, 22460-3 #### [facility] ([id number]) [address] [place] [address] 55543 Bilirubin [Mass/Vol] 0.6 mg/dL Normal 0.3-1.2 [facility] Comment on above: Performed By: #### C BCA, CMP, 3040-3, 42059-6 #### [facility] ([id number]) [address] [place] [address] 95233 Calcium [Mass/Vol] 8.3 mg/dL Low 8.5-10.5 [facility] Comment on above: Performed By: #### C BCA, CMP, 3040-3, 66563-5 #### [facility] ([id number]) [address] [place] [address] 88432 Chloride [Moles/Vol] 104 mmol/L Normal 98-109 [facility] Comment on above: Performed By: #### C BEBO ALVA, 3040-3, 42889-1 #### [facility] ([id number]) [address] [place] [address] 16611 CO2 [Moles/Vol] 28 mmol/L Normal 22-32 [facility] Comment on above: Performed By: #### C BEBO ALVA, 3040-3, 02209-2 #### [facility] ([id number]) [address] [place] [address] 63050 Creatinine [Mass/Vol] 0.94 mg/dL Normal 0.70-1.20 [facility] Comment on above: Result Comment: METH OD TRACEABLE TO IDMS STANDARD Performed By: #### C BEBO ALVA, 3040-3, 34656-2 #### [facility] ([id number]) [address] [place] [address] [address] eGFR (CKD-EPI) NON-RACE DEPENDENT >90 Normal >59 [facility] Comment on above: Result Comment: Reported eGFR is based on the CKD-EPI 2020 equation that does not use a race coefficient. Performed By: #### C BEBO ALVA, 3040-3, 08337-0 #### [facility] ([id number]) [address] [place] [address] 28378 Glucose [Mass/Vol] 115 mg/dL High 65-99 [facility] Comment on above: Performed By: #### C NIDA CMP, 3040-3, 74299-0 #### [facility] ([id number]) [address] [place] [address] 66800 Potassium [Moles/Vol] 4.3 mmol/L Normal 3.5-5.0 [facility] Comment on above: Performed By: #### C NIDA, CMP, 3040-3, 01849-8 #### [facility] ([id number]) [address] [place] [address] 41599 Protein [Mass/Vol] 7.8 g/dL Normal 6.0-8.0 [facility] Comment on above: Performed By: #### C NIDA, CMP, 3040-3, 63697-1 #### [facility] ([id number]) [address] [place] [address] 43866 Sodium [Moles/Vol] 137 mmol/L Normal 134-146 [facility] Comment on above: Performed By: #### C BCA, CMP, 3040-3, 23833-0 #### [facility] ([id number]) [address] [place] [address] 21534 Urea nitrogen [Mass/Vol] 18 mg/dL Normal 5-23 [facility] Comment on above: Performed By: #### C NIDA CMP, 3040-3, 53077-7 #### [facility] ([id number]) [address] [place] [address] 76471 LIPASEon 05-03-2023 Lipase [Catalytic activity/Vol] 31 U/L Normal 17-40 [facility] Comment on above: Performed By: #### C NIDA, CMP, 3040-3, 17214-6 #### [facility] ([id number]) [address] [place] [address] 40699 SARS/FLU A+B/RSV by NAAT/Mol ecularon 05-03-2023 SARS/FLU A+B/RSV by NAAT/Molecular FLU A PCR Negative (qualifier value) FLU B PCR Negative (qualifier value) RSV by PCR Negative (qualifier value) SARS CoV 2 Not detected (qualifier value) NOTE The Xpert Xpress SARS-CoV-2/Flu/RSV Plus test is a rapid, multiplexed real-time RT-PCR test intended for the simultaneous qualitative detection and differentiation of SARS-CoV-2, influenza A, influenza B and respiratory syncytial virus (RSV) viral RNA from individuals suspected of respiratory viral infection consistent with COVID-19 by their healthcare provider. This test has not been validated in asymptomatic patients. The Xpert Xpress SARS-CoV-2 test is intended for use by qualified and trained operators who are performing tests using either [employer] or [employer] systems and is limited to laboratories that meet the CLIA requirements to perform high and moderate complexity tests. The Xpert Xpress SARS-CoV-2/Flu/RSV Plus is only for use under the Food and Drug Administration's Emergency Use Authorization. Results are for the simultaneous detection and differentiation of SARS-CoV-2, influenza A, influenza B and RSV nucleic acids in clinical specimens. SARS-CoV-2, influenza A, influenza B and RSV RNA identified by this test are generally detectable in upper respiratory samples during the acute phase of infection. Positive results are indicative of the presence of the identified virus, but do not rule out bacterial infection or co-infection with other pathogens not detected by this test. Clinical correlation with patient history and other diagnostic information is necessary to determine patient infection status. The agent detected may not be the definite cause of disease. Negative results do not preclude SARS-CoV-2, influenza A, influenza B and RSV infection and should not be used as the sole basis for treatment or other patient management decisions. Negative results must be combined with clinical observations, patient history and epidemiological information. An Invalid result may occur with specimen-associated inhibition unable to be resolved with specimen repeat. Fact Sheet for Healthcare Providers: https://www.fda.gov/ media/659271/downloa d Fact Sheet for Patients: https://www.fda.gov/ media/976426/downloa d Normal [facility] Comment on above: Performed By: #### C OVFLR #### [facility] ([id number]) [address] [place] [address] 88124 TROPONIN Ion 05-03-2023 Troponin I.cardiac [Mass/Vol] 0.02 ng/mL Normal 0.00-0.04 [facility] Comment on above: Performed By: #### C BCA, CMP, 3040-3, 18453-5 #### [facility] ([id number]) [address] [place] [address] 76038 XR CHEST 1 VWon 05-03-2023 XR CHEST 1 VW XR CHEST 1 VW Clinical History: Lightheadedness. Portable Upright chest: 05/03/2023 Comparison: 03/25/2019 Findings: 2 portable images of the chest were obtained. There is no focal infiltrate. No pneumothorax or pleural effusion is evident. Mediastinal contours are stable. IMPRESSION: No acute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 TROPI, BMP #### [facility] [address] [place] [address] Sociology Teacher: Moncho Torres MD Creatinine [Mass/Vol] 0.82 mg/dL Normal 0.70-1.20 [facility] Comment on above: Performed By: #### C DP, TROPI, BMP #### [facility] [address] [place] [address] Sociology Teacher: Moncho Torres MD GFR, Amer >60 Normal >60 [facility] Comment on above: Performed By: #### C DP, TROPI, BMP #### [place] [address] [place] [address] Sociology Teacher: Moncho Torres MD GFR,non Amer >60 Normal >60 [facility] Comment on above: Performed By: #### C DP, TROPI, BMP #### [address] [address] Sociology Teacher: Moncho Torres MD Glucose [Mass/Vol] 102 mg/dL High 70-99 [facility] Comment on above: Performed By: #### C DP, TROPI, BMP #### [address] [address] Sociology Teacher: Moncho Torres MD Potassium [Moles/Vol] 4.0 mmol/L Normal 3.7-5.3 [facility] Comment on above: Performed By: #### C DP TROPI, BMP #### [address] [address] Sociology Teacher: Moncho Torres MD Sodium [Moles/Vol] 136 mmol/L Normal 135-144 [facility] Comment on above: Performed By: #### C DP, TROPI, BMP #### [facility] [address] [place] [address] Sociology Teacher: Moncho Torres MD Urea nitrogen [Mass/Vol] 14 mg/dL Normal 6-20 [facility] Comment on above: Performed By: #### C DP, TROPI, BMP #### [facility] [address] [place] [address] Sociology Teacher: Moncho Torres MD (cont.) [facility] Comment on above: Result Comment: Aver age GFR for 40-49 years old: 99 mL/min/1.73sq m Chronic Kidney Disease: <60 mL/min/1.73sq m Kidney failure: <15 mL/min/1.73sq m eGFR calculated using average adult body mass. Additional eGFR calculator available at: http://www.[employer].com/multiple_crcl_2012.htm Performed By: #### C YARITZA TROPI, BMP #### [facility] [address] [place], [place] [phone] Sociology Teacher: Moncho Torres MD BUN/CRE Ratio NOT REPORTED Normal 9-20 [facility] Comment on above: Performed By: #### C DP TROPI, BMP #### [facility] [address] [place], [place] [phone] Sociology Teacher: Moncho Torres MD Staging: NOT REPORTED Normal [facility] Comment on above: Performed By: #### C YARITZA TROPI, BMP #### [facility] [address] [place], [place] [phone] Sociology Teacher: Moncho Torres MD CARDIAC STRESS TESTon 2019 CARDIAC STRESS TEST [address] [address] CARDIAC STRESS TEST PATIENT NAME: RONAN NATH : 1975 MED REC NO: [id number] ROOM: [facility] ACCOUNT NO: [id number] ADMIT DATE: 03/25/2019 PROVIDER: Emigdio Vazquez CARDIOLITE TREADMILL STRESS STUDY DATE OF STUDY: 03/26/2019 ORDERING PROVIDER: Rodger Anna PRIMARY CARE PROVIDER: CARLOS Zimmer INDICATION: Chest pain CONSENT: The test was explained and consent was signed. PROTOCOL: Etienne, 7.40 METS, duration of 7:01 minutes. RESTING EKG: Normal, sinus rhythm at 95 bpm. RESTING HR: 95, maximum HR, 155 bpm which is 87% of the age predicted HR. HR response to exercise was normal. RESTING BP: 132/66 mmHg, peak BP, 209/75 mmHg. BP response to exercise was appropriate. CHEST PAIN: No chest discomfort with exercise or in recovery. EXERCISE EKG: No changes were noted. ISCHEMIC EKG CHANGES: None. IMPRESSION Electrocardiographic ally negative Cardiolite treadmill stress study. Cardiolite report issued from the department of nuclear medicine EMIGDIO VAZQUEZ /PGAYTAN Doc#: Unknown Normal [facility] CBC with Diffon 03-26-2019 Abs. Basophil 0.03 k/uL Normal 0.00-0.20 [facility] Comment on above: Performed By: #### C DP, TROPI, BMPX #### [place] [address] Sociology Teacher: Moncho Torres MD Abs.Imm.Granulocyte <0.03 Normal 0.00-0.30 [facility] Comment on above: Performed By: #### C DP, TROPI, BMPX #### [place] [address] Sociology Teacher: Moncho Torres MD Abs.Neutrophil (Seg) 5.18 k/uL Normal 1.50-8.10 [facility] Comment on above: Performed By: #### C DP, TROPI, BMPX #### [place] [address] Sociology Teacher: Moncho Torres MD Basophils/100 WBC (Bld) 0 % Normal 0-2 [facility] Comment on above: Performed By: #### C DP, TROPI, BMPX #### [place] [address] Sociology Teacher: Moncho Torres MD Eosinophils (Bld) [#/Vol] 0.11 10*3/uL Normal 0.00-0.44 [facility] Comment on above: Performed By: #### C DP, TROPI, BMPX #### [place] [address] Sociology Teacher: Moncho Torres MD Eosinophils/100 WBC (Bld) 1 % Normal 1-4 [facility] Comment on above: Performed By: #### C DP, TROPI, BMPX #### [address] [address] Sociology Teacher: Moncho Torres MD Erythrocyte distribution width (RBC) [Ratio] 12.9 % Normal 11.8-14.4 [facility] Comment on above: Performed By: #### C DP, TROPI, BMPX #### [place] [address] Sociology Teacher: Moncho Torres MD Hematocrit (Bld) [Volume fraction] 42.2 % Normal 40.7-50.3 [facility] Comment on above: Performed By: #### C DP, TROPI, BMPX #### [facility] [address] [place] [address] Sociology Teacher: Moncho Torres MD Hemoglobin (Bld) [Mass/Vol] 14.4 g/dL Normal 13.0-17.0 [facility] Comment on above: Performed By: #### C DP, TROPI, BMPX #### [facility] [address] [place] [address] Sociology Teacher: Moncho Torres MD Immature granulocytes (Bld) [#/Vol] 0 % Normal 0 [facility] Comment on above: Performed By: #### C DP, TROPI, BMPX #### [place] [address] Sociology Teacher: Moncho Torres MD Lymphocytes (Bld) [#/Vol] 2.68 10*3/uL Normal 1.10-3.70 [facility] Comment on above: Performed By: #### C DP, TROPI, BMPX #### [facility] [address] [place] [address] Sociology Teacher: Moncho Torres MD Lymphocytes/100 WBC (Bld) 31 % Normal 24-43 [facility] Comment on above: Performed By: #### C DP, TROPI, BMPX #### [address] [address] Sociology Teacher: Moncho Torres MD MCH (RBC) [Entitic mass] 30.1 pg Normal 25.2-33.5 [facility] Comment on above: Performed By: #### C DP, TROPI, BMPX #### [address] [address] Sociology Teacher: Moncho Torres MD MCHC (RBC) [Mass/Vol] 34.1 g/dL Normal 28.4-34.8 [facility] Comment on above: Performed By: #### C DP, TROPI, BMPX #### [address] [address] Sociology Teacher: Moncho Torres MD MCV (RBC) [Entitic vol] 88.1 fL Normal 82.6-102.9 [facility] Comment on above: Performed By: #### C DP, TROPI, BMPX #### [address] [address] Sociology Teacher: Moncho Torres MD Monocytes (Bld) [#/Vol] 0.75 10*3/uL Normal 0.10-1.20 [facility] Comment on above: Performed By: #### C DP, TROPI, BMPX #### [place] [address] Sociology Teacher: Moncho Torres MD Monocytes/100 WBC (Bld) 9 % Normal 3-12 [facility] Comment on above: Performed By: #### C DP, TROPI, BMPX #### [address] [address] Sociology Teacher: Moncho Torres MD Neutrophil (Seg) 59 % Normal 36-65 [facility] Comment on above: Performed By: #### C DP, TROPI, BMPX #### [address] [address] Sociology Teacher: Moncho Torres MD NRBC Automated 0.0 per 100 WBC Normal 0.0 [facility] Comment on above: Performed By: #### C DP, TROPI, BMPX #### [address] [address] Sociology Teacher: Moncho Torres MD Platelet mean volume (Bld) [Entitic vol] 11.7 fL Normal 8.1-13.5 [facility] Comment on above: Performed By: #### C DP, TROPI, BMPX #### [address] [address] Sociology Teacher: Moncho Torres MD Platelets (Bld) [#/Vol] 215 10*3/uL Normal 138-453 [facility] Comment on above: Performed By: #### C DP, TROPI, BMPX #### [address] [address] Sociology Teacher: Moncho Trores MD RBC (Bld) [#/Vol] 4.79 10*6/uL Normal 4.21-5.77 [facility] Comment on above: Performed By: #### C DP, TROPI, BMPX #### [address] [address] Sociology Teacher: Moncho Torres MD WBC (Bld) [#/Vol] 8.8 10*3/uL Normal 3.5-11.3 [facility] Comment on above: Performed By: #### C DP, TROPI, BMPX #### [address] [address] Sociology Teacher: Moncho Torres MD Auto Diff Performed NOT REPORTED Normal [facility] Comment on above: Performed By: #### C DP, TROPI, BMPX #### [address] [address] Sociology Teacher: Moncho Torres MD Platelets (Bld) [#/Vol] NOT REPORTED Normal [facility] Comment on above: Performed By: #### C DP, TROPI, BMPX #### [address] [address] Sociology Teacher: Moncho Torres MD RBC morphology finding Nom (Bld) NOT REPORTED Normal [facility] Comment on above: Performed By: #### C DP, TROPI, BMPX #### [facility] [address] [place] [address] Sociology Teacher: Moncho Torres MD WBC Morphology NOT REPORTED Normal [facility] Comment on above: Performed By: #### C DP, TROPI, BMPX #### [address] [address] Sociology Teacher: Moncho Torres MD Abs. Basophil 0.04 k/uL Normal 0.00-0.20 [facility] Comment on above: Performed By: #### C DP, TROPI, BMP #### [address] [address] Sociology Teacher: Moncho Torres MD Abs.Imm.Granulocyte <0.03 Normal 0.00-0.30 [facility] Comment on above: Performed By: #### C DP, TROPI, BMP #### [facility] [address] [place] [address] Sociology Teacher: Moncho Torres MD Abs.Neutrophil (Seg) 8.06 k/uL Normal 1.50-8.10 [facility] Comment on above: Performed By: #### C DP, TROPI, BMP #### [facility] [address] [place] [address] Sociology Teacher: Moncho Torres MD Basophils/100 WBC (Bld) 0 % Normal 0-2 [facility] Comment on above: Performed By: #### C DP TROPI, BMP #### [facility] [address] [place] [address] Sociology Teacher: Moncho Torres MD Eosinophils (Bld) [#/Vol] 0.04 10*3/uL Normal 0.00-0.44 [facility] Comment on above: Performed By: #### C DP, TROPI, BMP #### [address] [address] Sociology Teacher: Moncho Torres MD Eosinophils/100 WBC (Bld) 0 % Low 1-4 [facility] Comment on above: Performed By: #### C YARITZA TROPI, BMP #### [facility] [address] [place] [address] Sociology Teacher: Moncho Torres MD Erythrocyte distribution width (RBC) [Ratio] 12.7 % Normal 11.8-14.4 [facility] Comment on above: Performed By: #### C YARITZA TROPI, BMP #### [address] [address] Sociology Teacher: Moncho Torres MD Hematocrit (Bld) [Volume fraction] 43.0 % Normal 40.7-50.3 [facility] Comment on above: Performed By: #### C YARITZA TROPI, BMP #### [facility] [address] [place] [address] Sociology Teacher: Moncho Torres MD Hemoglobin (Bld) [Mass/Vol] 14.2 g/dL Normal 13.0-17.0 [facility] Comment on above: Performed By: #### C DP TROPI, BMP #### [facility] [address] [place] [address] Sociology Teacher: Moncho Torres MD Immature granulocytes (Bld) [#/Vol] 0 % Normal 0 [facility] Comment on above: Performed By: #### C DP, TROPI, BMP #### [address] [address] Sociology Teacher: Moncho Torres MD Lymphocytes (Bld) [#/Vol] 1.71 10*3/uL Normal 1.10-3.70 [facility] Comment on above: Performed By: #### C DP, TROPI, BMP #### [address] [address] Sociology Teacher: Moncho Torres MD Lymphocytes/100 WBC (Bld) 16 % Low 24-43 [facility] Comment on above: Performed By: #### C DP, TROPI, BMP #### [address] [address] Sociology Teacher: Moncho Torres MD MCH (RBC) [Entitic mass] 28.8 pg Normal 25.2-33.5 [facility] Comment on above: Performed By: #### C DP TROPI, BMP #### [address] [address] Sociology Teacher: Moncho Torres MD MCHC (RBC) [Mass/Vol] 33.0 g/dL Normal 28.4-34.8 [facility] Comment on above: Performed By: #### C DP TROPI, BMP #### [address] [address] Sociology Teacher: Moncho Torres MD MCV (RBC) [Entitic vol] 87.2 fL Normal 82.6-102.9 [facility] Comment on above: Performed By: #### C DP, TROPI, BMP #### [address] [address] Sociology Teacher: Moncho Torres MD Monocytes (Bld) [#/Vol] 0.79 10*3/uL Normal 0.10-1.20 [facility] Comment on above: Performed By: #### C DP, TROPI, BMP #### [facility] [place] [address] Sociology Teacher: Moncho Torres MD Monocytes/100 WBC (Bld) 7 % Normal 3-12 [facility] Comment on above: Performed By: #### C DP, TROPI, BMP #### [facility] [address] [place] [address] Sociology Teacher: Moncho Torres MD Neutrophil (Seg) 77 % High 36-65 [facility] Comment on above: Performed By: #### C DP, TROPI, BMP #### [facility] [address] [place] [address] Sociology Teacher: Moncho Torres MD NRBC Automated 0.0 per 100 WBC Normal 0.0 [facility] Comment on above: Performed By: #### C DP, TROPI, BMP #### [facility] [address] [place] [address] Sociology Teacher: Moncho Torres MD Platelet mean volume (Bld) [Entitic vol] 10.3 fL Normal 8.1-13.5 [facility] Comment on above: Performed By: #### C DP, TROPI, BMP #### [facility] [address] [place] [address] Sociology Teacher: Moncho Torres MD Platelets (Bld) [#/Vol] 202 10*3/uL Normal 138-453 [facility] Comment on above: Performed By: #### C DP, TROPI, BMP #### [facility] [address] [place] [address] Sociology Teacher: Moncho Torres MD RBC (Bld) [#/Vol] 4.93 10*6/uL Normal 4.21-5.77 [facility] Comment on above: Performed By: #### C DP, TROPI, BMP #### [employer] [address] [place] [address] Sociology Teacher: Moncho Torres MD WBC (Bld) [#/Vol] 10.7 10*3/uL Normal 3.5-11.3 [facility] Comment on above: Performed By: #### C DP, TROPI, BMP #### [facility] [address] [place] [address] Sociology Teacher: Moncho Torres MD Auto Diff Performed NOT REPORTED Normal [facility] Comment on above: Performed By: #### C DP, TROPI, BMP #### [facility] [address] [place] [address] Sociology Teacher: Moncho Torres MD Platelets (Bld) [#/Vol] NOT REPORTED Normal [facility] Comment on above: Performed By: #### C DP, TROPI, BMP #### [facility] [address] [place] [address] Sociology Teacher: Moncho Torres MD RBC morphology finding Nom (Bld) NOT REPORTED Normal [facility] Comment on above: Performed By: #### C DP, TROPI, BMP #### [facility] [address] [place] [address] Sociology Teacher: Moncho Torres MD WBC Morphology NOT REPORTED Normal [facility] Comment on above: Performed By: #### C DP, TROPI, BMP #### [facility] [address] [place] [address] Sociology Teacher: Moncho Torres MD NM MYOCARDIAL SPECT REST EXE RCISE OR RXon 03-26-2019 NM MYOCARDIAL SPECT REST EXERCISE OR RX EXAMINATION: MYOCARDIAL PERFUSION IMAGING 03/26/2019 TECHNIQUE: Rest dose: 13 mCi Tc-99m sestamibi intravenously Stress dose: 49 mCi Tc-99m sestamibi intravenously Under cardiology supervision, treadmill exercise testing was performed. Peak heart rate of 150 bpm is 85% of the age predicted maximum heart rate. SPECT imaging was acquired following injection of the sestamibi. ECG gating was obtained following the stress acquisition. Concurrent CT scan is obtained for attenuation correction. COMPARISON: None Available. HISTORY: ORDERING SYSTEM PROVIDED HISTORY: Chest pain TECHNOLOGIST PROVIDED HISTORY: Reason for Exam: Chest pain Procedure Type->Exercise chest pain Reason for Exam: HTN, chesp pain likely musculoskeletal related to Lt shoulder injury. FINDINGS: Perfusion: Image quality is good with no significant attenuation artifact. There are no fixed or reversible perfusion defects. Summed stress score: 0 Summed rest score: 0 Summed reversibility score: 0 Scores are visually adjusted to account for potential artifact TID score: 1.17 (threshold value of 1.19 is used for exercise stress with Tc-99m) Function: End diastolic volume: 75mL Left ventricular ejection fraction: 68% Wall motion abnormalities: None. IMPRESSION: Perfusion: Normal exam Function: Normal exam Risk stratification: Low Note on Risk Stratification: The above risk stratification is based on myocardial perfusion findings. Final risk assessment may be adjusted based on other clinical and noninvasive test findings. Risk stratification criteria are adapted from Noninvasive Risk Stratification criteria from Villanueva et. al, ACC/AATS/AHA/ASE/ASN C/SCAI/SCCT/STS 2017 Appropriate Use Criteria For Coronary Revascularization in Patients With Stable Ischemic Heart Disease [facility] Volume 69, Issue July 2016 Interpreted by: Leeroy Woo MD Signed by: Leeroy Woo MD 03/26/19 Final result Normal [facility] Troponinon 03-26-2019 Troponin I.cardiac [Mass/Vol] 8 ng/L Normal 0-22 [facility] Comment on above: Result Comment: High Sensitivity Troponin values cannot be compared with other Troponin methodologies. Patients with high levels of Biotin oral intake (i.e >5mg/day) may have falsely decreased Troponin levels. Samples collected within 8 hours of biotin intake may require additional information for diagnosis. Performed By: #### T ARSHI #### [employer] [address] [place] [address] Sociology Teacher: Moncho Torres MD Troponin I.cardiac [Mass/Vol] NOT REPORTED Normal [facility] Comment on above: Performed By: #### T ROPI #### [employer] [address] [place] [address] Sociology Teacher: Moncho Torres MD Troponin I.cardiac [Mass/Vol] 8 ng/L Normal 0-22 [facility] Comment on above: Result Comment: High Sensitivity Troponin values cannot be compared with other Troponin methodologies. Patients with high levels of Biotin oral intake (i.e >5mg/day) may have falsely decreased Troponin levels. Samples collected within 8 hours of biotin intake may require additional information for diagnosis. Performed By: #### C DP, TROPI, BMPX #### [employer] [address] [place] [address] Sociology Teacher: Moncho Torres MD Troponin I.cardiac [Mass/Vol] NOT REPORTED Normal <0.03 [facility] Comment on above: Performed By: #### C DP, TROPI, BMPX #### [employer] [address] [place] [id number] Sociology Teacher: Moncho Torres MD Troponin I.cardiac [Mass/Vol] ng/mL Normal 0-22 [facility] Comment on above: Result Comment: High Sensitivity Troponin values cannot be compared with other Troponin methodologies. Patients with high levels of Biotin oral intake (i.e >5mg/day) may have falsely decreased Troponin levels. Samples collected within 8 hours of biotin intake may require additional information for diagnosis. Performed By: #### T ROPI #### [employer] [address] [place] [address] Sociology Teacher: Moncho Torres MD Troponin I.cardiac [Mass/Vol] NOT REPORTED Normal [facility] Comment on above: Performed By: #### T ROPI #### [employer] [address] [place] [address] Sociology Teacher: Moncho Torres MD Troponin I.cardiac [Mass/Vol] 6 ng/L Normal 0-22 [facility] Comment on above: Result Comment: High Sensitivity Troponin values cannot be compared with other Troponin methodologies. Patients with high levels of Biotin oral intake (i.e >5mg/day) may have falsely decreased Troponin levels. Samples collected within 8 hours of biotin intake may require additional information for diagnosis. Performed By: #### C DP, TROPI, BMP #### [employer] [address] [place], [place] [id number] Sociology Teacher: Moncho Torres MD Troponin I.cardiac [Mass/Vol] NOT REPORTED Normal <0.03 [facility] Comment on above: Performed By: #### C DP, TROPI, BMP #### [employer] [address] [place] [address] Sociology Teacher: Moncho Torres MD XR KNEE LEFT (3 VIEWS)on XR KNEE LEFT (3 VIEWS) EXAMINATION: 3 XRAY VIEWS OF THE LEFT KNEE 08/25/2018 11:35 am COMPARISON: None. HISTORY: ORDERING SYSTEM PROVIDED HISTORY: pain TECHNOLOGIST PROVIDED HISTORY: pain Ordering Physician Provided Reason for Exam: lt knee pain x 2 weeks, discoloration above lt knee, no known injury Acuity: Unknown Type of Exam: Unknown FINDINGS: Bone mineralization and alignment appear intact. No evidence of acute fracture or dislocation. Radiographically there is no significant joint effusion. IMPRESSION: Negative Interpreted by: Zafar Shetty MD Signed by: Zafar Shetty MD 08/25/18 Final result Normal [facility] XR TIBIA FIBULA RIGHT (2 VIE WS)on 08-25-2018 XR TIBIA FIBULA RIGHT (2 VIEWS) EXAMINATION: 4 XRAY VIEWS OF THE RIGHT TIBIA AND FIBULA 08/25/2018 11:35 am COMPARISON: None. HISTORY: ORDERING SYSTEM PROVIDED HISTORY: lump over mid tibia TECHNOLOGIST PROVIDED HISTORY: lump over mid tibia Ordering Physician Provided Reason for Exam: bump to rt mid lower leg medial side, rt ankle surgery 7 years ago Acuity: Unknown Type of Exam: Unknown FINDINGS: AP and lateral views of the right tib-fib demonstrate no acute osseous abnormality. No significant bony abnormality to explain the patient's palpable abnormality in the mid calf. No focal soft tissue abnormality is seen. Previous ORIF of lateral malleolar fracture with 2 syndesmotic screws noted. No hardware complication IMPRESSION: No acute osseous abnormality of the right tib-fib. No significant plain film abnormality to explain the palpable abnormality in the mid calf. Interpreted by: Albania Martel MD Signed by: Albania Martel MD 08/25/18 Final result Normal [facility] Vital Signs Date Time Vital Sign Value Performing Clinician Joe de pazsteph 03-23-2023 13:04-0500 Body height 190.5 cm Rasta Rapp MD Work Phone: [facility] 03-23-2023 13:04-0500 Body mass index (BMI) [Ratio] 30.62 kg/m2 Rasta Rapp MD Work Phone: [facility] 03-23-2023 13:04-0500 Body weight 111.13 kg Rasta Rapp MD Work Phone: [facility] 03-23-2023 13:04-0500 Diastolic blood pressure 70 mm[Hg] Rasta Rapp MD Work Phone: [facility] 03-23-2023 13:04-0500 Heart rate 71 /min Rasta Rapp MD Work Phone: [facility] 03-23-2023 13:04-0500 SaO2% (BldA) [Mass fraction] 95 % Rasta Rapp MD Work Phone: [facility] 03-23-2023 13:04-0500 Systolic blood pressure 104 mm[Hg] Rasta Rapp MD Work Phone: [facility] 12-17-2021 09:54-0400 Diastolic blood pressure 60 mm[Hg] CNA-C Lana Sherman Work Phone: [facility] 12-17-2021 09:54-0400 Heart rate 68 /min CNA-C Lana Sherman Work Phone: [facility] 12-17-2021 09:54-0400 Respiratory rate 16 /min CNA-C Lana Sherman Work Phone: [facility] 12-17-2021 09:54-0400 SaO2% (BldA) [Mass fraction] 92 % CNA-C Lana Sherman Work Phone: [facility] 12-17-2021 09:54-0400 Systolic blood pressure 96 mm[Hg] CNA-C Lana Sherman Work Phone: [facility] 12-17-2021 07:39-0400 Body height 190.5 cm CNA-C Lana Sherman Work Phone: [facility] 12-17-2021 07:39-0400 Body temperature 98.2 [degF] CNA-C Lana Sherman Work Phone: [facility] 12-17-2021 07:39-0400 Body weight 104.32 kg CNA-C Lana Sherman Work Phone: [facility] 07-29-2021 17:30-0400 Body height 190.5 cm Lana Sherman Other [facility] Other 07-29-2021 17:30-0400 Body mass index (BMI) [Ratio] 29.99 kg/m2 Lana Alemanault Other [facility] [employer] Other 07-29-2021 17:30-0400 Body temperature 97.8 [degF] Lana Sherman Other [facility] [employer] Other 07-29-2021 17:30-0400 Body weight 108.86 kg Lana Sherman Other [facility] Other 07-29-2021 17:30-0400 Respiratory rate 18 /min Lana Alemanault Other [facility] [employer] Other 07-29-2021 17:30-0400 SaO2% (BldA) [Mass fraction] 95 % Lana Alemanault Other [facility] [employer] Other 06-13-2021 15:30-0400 Body height 190.5 cm Lana Sherman Other [facility] Other 06-13-2021 15:30-0400 Body mass index (BMI) [Ratio] 29.99 kg/m2 Lana Sherman Other [facility] [employer] Other 06-13-2021 15:30-0400 Body temperature 97.6 [degF] Lana Sherman Other [facility] [employer] Other 06-13-2021 15:30-0400 Body weight 108.86 kg Lana Sherman Other [facility] [employer] Other 06-13-2021 15:30-0400 Diastolic blood pressure 71 mm[Hg] Lana Alemanault Other [facility] [employer] Other 06-13-2021 15:30-0400 Respiratory rate 18 /min Lana Sherman Other [facility] [employer] Other 06-13-2021 15:30-0400 SaO2% (BldA) [Mass fraction] 96 % Lana Sherman Other [facility] Other 06-13-2021 15:30-0400 Systolic blood pressure 106 mm[Hg] Lana Alemanault Other [facility] [employer] Other 01-03-2021 15:30-0400 Body height 190.5 cm Lana Alemanault Other [facility] Other 01-03-2021 15:30-0400 Body mass index (BMI) [Ratio] 29.74 kg/m2 Lana Sherman Other [facility] Other 01-03-2021 15:30-0400 Body temperature 97.1 [degF] Lana Sherman Other [facility] Other 01-03-2021 15:30-0400 Body weight 107.96 kg Lana Sherman Other [facility] Other 01-03-2021 15:30-0400 Diastolic blood pressure 73 mm[Hg] Lana Sherman Other [facility] Other 01-03-2021 15:30-0400 Respiratory rate 18 /min Lana Sherman Other [facility] Other 01-03-2021 15:30-0400 SaO2% (BldA) [Mass fraction] 97 % Lana Sherman Other [facility] Other 01-03-2021 15:30-0400 Systolic blood pressure 113 mm[Hg] Lana Sherman Other [facility] Other 12-17-2020 14:00-0400 Body height 190.5 cm Lana Sherman Other [facility] Other 12-17-2020 14:00-0400 Body mass index (BMI) [Ratio] 29.99 kg/m2 Lana Sherman Other [facility] [employer] Other 12-17-2020 14:00-0400 Body temperature 96.7 [degF] Lana Sherman Other [facility] Other 12-17-2020 14:00-0400 Body weight 108.86 kg Lana Sherman Other [facility] Other 12-17-2020 14:00-0400 Diastolic blood pressure 71 mm[Hg] Lana Sherman Other [facility] [employer] Other 12-17-2020 14:00-0400 Respiratory rate 18 /min Lana Sherman Other [facility] [employer] Other 12-17-2020 14:00-0400 SaO2% (BldA) [Mass fraction] 97 % Lana Sherman Other [facility] [employer] Other 12-17-2020 14:00-0400 Systolic blood pressure 126 mm[Hg] Lana Sherman Other [facility] [employer] Other Encounters Encounter Date Encounter Type Care Provider Facility Start: 12-10-2023 End: 12-10-2023 Emergency department patient visit LANA SHERMAN [facility] Start: 11-30-2023 End: 11-30-2023 ambulatory LANA RAMY Facility:[facility] Start: 06-01-2023 End: 06-01-2023 ambulatory LANA RAMY Facility:[facility] Start: 06-01-2023 End: 06-01-2023 Patient encounter procedure LANA SHERMAN [facility] Start: 05-22-2023 End: 05-23-2023 Emergency department patient visit IAN JONES [facility] Start: 05-15-2023 End: 05-16-2023 Emergency department patient visit VANDANA LAMBERT [facility] Start: 05-11-2023 End: 05-13-2023 Emergency department patient visit NIXON HYMAN [facility] Start: 05-03-2023 End: 05-04-2023 [facility] Start: 05-03-2023 End: 05-03-2023 Emergency department patient visit LANAGONZALEZ SHERMAN [facility] Start: 04-11-2023 End: 04-11-2023 Emergency department patient visit LANA SHERMAN [facility] Start: 03-23-2023 End: 03-23-2023 Office outpatient visit 25 minutes Rasta Rapp MD Work Phone: [facility] Comment on above: Essential hypertensi on (Primary Dx); Paroxysmal atrial fibrillation (CMS-HCC); Mixed hyperlipidemia Start: 03-23-2023 End: 04-14-2023 ambulatory RASTA RAPP [facility] Start: 03-20-2023 Telephone encounter April Gee [facility] Start: 05-08-2022 End: 05-08-2022 ambulatory Lana Sherman [facility] [employer] Other Start: 05-08-2022 Telephone encounter Lana Nevillel t [facility] Start: 04-30-2022 End: 04-30-2022 ambulatory Lana Sherman [facility] [employer] Other Start: 04-30-2022 Telephone encounter Lana Lozadal t [facility] Start: 12-23-2021 End: 12-23-2021 ambulatory Waqar Angulo Other [facility] [employer] Other Start: 12-23-2021 Telephone encounter Waqar hoff [facility] Start: 12-17-2021 End: 12-17-2021 Admission to same day surgery center CNA-C Lana Alemanault Work Phone: [facility] Start: 12-17-2021 End: 12-17-2021 ambulatory CNA-C Lana Ramy Work Phone: [facility] Work Phone: Start: 12-13-2021 End: 12-13-2021 ambulatory Waqar Jluis Angulo Facility:[facility] Start: 12-13-2021 End: 12-13-2021 ambulatory CNA-C Lana Ramy Work Phone: [facility] Work Phone: Start: 12-13-2021 End: 12-13-2021 Patient encounter procedure CNA-C Lana Ramy Work Phone: [facility] Start: 11-06-2021 End: 11-06-2021 ambulatory Waqar Angulo Other [facility] [employer] Other Start: 11-06-2021 Telephone encounter Waqar Juicelauren [facility] Start: 11-05-2021 End: 11-05-2021 ambulatory Waqar Jluis Angulo Facility:[facility] Start: 11-05-2021 End: 11-05-2021 Patient encounter procedure CNA-C Lana Ramy Work Phone: [facility] Start: 10-21-2021 End: 10-21-2021 ambulatory Lana Sherman [facility] Other Start: 10-21-2021 Telephone encounter Lana fernandez [facility] Start: 07-29-2021 End: 07-29-2021 ambulatory Alnagonzalez Sherman Other [facility] [employer] Other Start: 07-29-2021 Office outpatient vi sit 15 minutes Lana Sherman [facility] Start: 06-27-2021 End: 06-27-2021 ambulatory Lana Sherman [facility] Other Start: 06-27-2021 Telephone encounter Lana Breaul t [facility] Start: 06-13-2021 End: 06-13-2021 ambulatory Lana Ramy [facility] [employer] Other Start: 06-13-2021 Office outpatient vi sit 25 minutes Lana Ramy [facility] Start: 04-16-2021 End: 04-16-2021 ambulatory Laan Ramy Other [facility] [employer] Other Start: 04-16-2021 Telephone encounter Lanagonzalez Lozadal t [facility] Start: 04-15-2021 End: 04-15-2021 ambulatory Lana Ramy Facility:[facility] Start: 03-19-2021 End: 03-19-2021 ambulatory Lana Ramy Facility:[facility] Start: 01-03-2021 End: 01-03-2021 ambulatory Lana Ramy [facility] [employer] Other Start: 01-03-2021 Office outpatient vi sit 15 minutes Lana Ramy [facility] Start: 12-17-2020 Office outpatient vi sit 15 minutes Lana Ramy [facility] Start: 10-19-2020 ambulatory LANA RAMY Facil ity:[facility] Start: 12-28-2019 End: 01-12-2020 Patient encounter procedure REFERRED SELF Facility:[facility] Start: 03-26-2019 End: 03-26-2019 Patient encounter procedure CINDY BEE [facility] Start: 08-25-2018 End: 08-25-2018 Emergency department patient visit ARTURO HICKMAN [facility] Start: 08-25-2018 End: 08-25-2018 Emergency department patient visit LAURENT DELACRUZ [facility] Procedures Date Procedure Procedure Detail Performing Clinician Start: 03-23-2023 Follow-up visit Follow-up RASTA DOZIER Start: 12-17-2021 Colonoscopy CNA-C Step gonzalez Sherman Work Phone: Start: 03-26-2019 Myocardial spect mul tiple studies CINDY CRISTAL Start: 03-26-2019 Cv strs tst xers&/or rx cont ecg w/o i&r CINDY CRISTAL Start: 03-26-2019 Myocardial spect mul tiple studies CINDY CRISTAL Start: 03-26-2019 DISCHARGE PATIENT CINDY BEE Start: 03-26-2019 Assay of troponin quantitative CINDY CRISTAL Start: 03-26-2019 INITIATE OXYGEN THER APY PROTOCOL CINDY CRISTAL Start: 03-26-2019 Ecg routine ecg w/le ast 12 lds w/i&r CINDY CRISTAL Start: 03-26-2019 EKG REPORT CINDY CRISTAL Start: 03-26-2019 Assay of troponin quantitative CINDY CRISTAL Start: 03-26-2019 Blood count complete auto&auto difrntl wbc CINDY CRISTAL Start: 03-26-2019 Comprehensive metabo lic panel CINDY CAZARESA Start: 03-26-2019 TELEMETRY MONITORING DA RAZIA BEE Start: 03-26-2019 DIET GENERAL CINDY BEE Start: 03-26-2019 FULL CODE CINDY BEE Start: 03-26-2019 INITIATE OXYGEN THER APY PROTOCOL CINDY CRISTAL Start: 03-26-2019 IP CONSULT TO CARDIOLOGY CINDY CRISTAL Start: 03-26-2019 NOTIFY PHYSICIAN (SPECIFY) CINDY CRISTAL Start: 03-26-2019 PLACE INTERMITTENT PNEUMATIC COMPRESSION DEVICE CINDY CRISTAL Start: 03-26-2019 REASON FOR NO CHEMIC AL VTE PROPHYLAXIS CINDY CRISTAL Start: 03-26-2019 TOBACCO CESSATION EDUCATION CINDY CAZARESA Start: 03-26-2019 VITAL SIGNS CINDY CRISTAL Start: 03-26-2019 PATIENT STATUS (FROM ED OR OR/PROCEDURAL) CINDY CRISTAL Start: 03-26-2019 Assay of troponin quantitative CNIDY CRISTAL Start: 03-26-2019 Basic metabolic pane l calcium total CINDY CRISTAL Start: 03-26-2019 Blood count complete auto&auto difrntl wbc CINDY CRISTAL Start: 03-26-2019 Ecg routine ecg w/le ast 12 lds w/i&r CINDY CRISTAL Start: 08-25-2018 APPLY LULU WRAP LAURENT L EWIS Start: 08-25-2018 Dup-scan xtr veins complete bilateral study LAURENT JAYME Start: 08-25-2018 Radiologic examinati on tibia & fibula 2 views LAURENT JAYME Start: 08-25-2018 Radiologic examinati on knee 3 views LAURENT JAYME SARS Antigen (LFIA) [facility] Work Phone: SARS Antigen (LFIA) [facility] Work Phone: Plan of Treatment Date Care Activity Detail Author Start: 06-20-2032 DTaP,Tdap and Td Vaccines (3 - Td or Tdap) DTaP,Tdap and Td Vaccines (3 - Td or Tdap) [facility] Start: 03-23-2024 Adult BMI Screening Adult BMI Screen ing [facility] Start: 03-23-2024 Tobacco Screening Tobacco Screening [facility] Start: 02-22-2024 Adult BMI Screening Adult BMI Screen ing [facility] Start: 02-22-2024 Tobacco Screening Tobacco Screening [facility] Start: 03-23-2023 End: 03-23-2024 Event Monitor (In Office) [facility] Work Phone: Comment on above: Expected: 03/23/2023 , Expires: 03/23/2024 Start: 03-23-2023 End: 03-23-2023 Patient encounter procedure 03/23/2023 1:15 PM EST Office Visit [facility] [address] [place] [id number] Rasta Rapp MD [address] [place] [address] [facility] Start: 11-07-2022 COVID-19 Vaccine ( season) COVID-19 Vaccine ( season) [facility] Start: 11-07-2022 Influenza vaccination Influenza Vacc ine [facility] Start: 12-17-2021 [facility] Start: 1993 Adult BMI Follow Up Plan Adult BMI Follow Up Plan [facility] Start: 1987 Depression Screening Depression Scre ening [facility] End: 03-23-2024 CBC panel - Blood by Automated count CBC Lab Routine Paroxysmal atrial fibrillation ([facility]) 1 Occurrences starting 03/23/2023 until 03/23/2024 [facility] Comment on above: 1 Occurrences starti ng 03/23/2023 until 03/23/2024 End: 03-23-2024 Comprehensive metabolic 2000 panel - Serum or Plasma CMP Lab Routine Essential hypertension 1 Occurrences starting 03/23/2023 until 03/23/2024 [facility] [employer] Comment on above: 1 Occurrences starti ng 03/23/2023 until 03/23/2024 End: 03-23-2024 Lipid panel Lipid panel Lab Routine Mixed hyperlipidemia 1 Occurrences starting 03/23/2023 until 03/23/2024 [facility] Comment on above: 1 Occurrences starti ng 03/23/2023 until 03/23/2024 Patient Education Colon Polyps [facility] Work Phone: End: 03-22-2024 Thyrotropin [Units/volume] in Serum or Plasma TSH Lab Routine Paroxysmal atrial fibrillation ([facility]-H[facility]) 1 Occurrences starting 03/23/2023 until 03/22/2024 [facility] [employer] Comment on above: 1 Occurrences starti ng 03/23/2023 until 03/22/2024 Immunizations Immunization Date Immunization Notes Care Provider Roddy frias 06-20-2022 tetanus toxoid, reduced diphtheria toxoid, and acellular pertussis vaccine, adsorbed April Gee [facility] 10-09-2020 Depo-Medrol 80 mg Lana Sherman Other [facility] Other 11-21-2019 Depo-Medrol 20 mg Lana Sherman Other [facility] Other Payers Date Payer Category Payer Self-pay [id number] 2022 Medicaid [employer] [facility] MEDICAID [id number] 2022-Present [address] [place] [address] [id number] 2022 Unknown [id number] 2016 Unknown [id number] 2014 Unknown [id number] 1975 Unknown [id number] 2.16.840.1.993517.3.579.2. 176 1975 Unknown [id number] 2.16.840.1.488521.3.579.2. 175 1975 Unknown [id number] 2.16.840.1.764145.3.579.2. 647 1975 Unknown [id number] 2.16.840.1.887011.3.579.2. 593 1975 Unknown [id number] 2.16.840.1.994314.3.579.2. 727 1975 Unknown [id number] 2.16.840.1.400361.3.579.2. 727 1975 Unknown [id number] 2.16.840.1.080655.3.579.2. 1286 1975 Unknown [id number] 2.16.840.1.095407.3.579.2. 1286 1975 Unknown [id number] 2.16.840.1.548275.3.579.2. 1286 1975 Unknown [id number] 2.16.840.1.552452.3.579.2. 1286 1975 Unknown [id number] 2.16.840.1.159529.3.579.2. 1286 1975 Unknown [id number] 2.16.840.1.992220.3.579.2. 1286 1975 Unknown [id number] 2.16.840.1.555699.3.579.2. 1286 1975 Unknown [id number] 2.16.840.1.602834.3.579.2. 1286 1975 Unknown [id number] 2.16.840.1.088687.3.579.2. 1286 1975 Unknown [id number] 2.16.840.1.785714.3.579.2. 1286 1975 Unknown [id number] 2.16.840.1.321237.3.579.2. 1286 1975 Unknown [id number] 2.16.840.1.132130.3.579.2. 1286 1959 Self-pay [id number] Private Health Insurance [employer] [id number] Unknown [id number] [id number] Unknown [id number] Social History Date Type Detail Facility Unknown if ever smoked [facility] Other Start: 04-19-2020 End: 02-21-2023 Sex Assigned At [facility] Start: 1975 Sex Assigned At Male [facility] Start: 12-17-2021 End: 02-21-2023 Tobacco smoking status NHIS Ex-smoker (finding) [facility] End: 02-06-2014 History of tobacco use Current smoker [facility] End: 02-06-2014 History of tobacco use Cigarette Smoker [facility] Start: 02-21-2023 Tobacco use and exposure Smokeless tobacco non-user [facility] Start: 02-21-2023 End: 03-23-2023 Alcohol intake Ex-drinker (finding) [facility] Start: 04-19-2020 End: 02-21-2023 History of Social function [facility] Are you worried or concerned that in the next two months you may not have stable housing that you own, rent or stay in as a part of a household? No [facility] Start: 08-06-2021 Alcohol Comment quit 2013 [facility] Start: 1975 Sex Assigned At Not on file [facility] Medical Equipment Procedure Code Equipment Code Equipment Origin al Text Equipment Identifier Dates ReliOn Lancets - Start: 10-05-2020 Goals Date Patient Goal Desired Activity /State Personal health goal Comment on above: Formatting of this n ote might be different from the original. Evaluation of progress towards goal: safe transition from hospital to home with family support. Clinical Notes 12-17-2020 to 03-23-2023 Rasta Rapp MD - 03/23/2023 1:15 PM ESTTelephone Encounter - April Gee, [facility] - 03/20/2023 9:08 AM ESTTelephone Encounter - April Gee, [facility] - 03/20/2023 9:08 AM EST Note Date & Type Note Facility 03-23-2023 History of Presen t illness Narrative Ronan Nath Date of visit: 03/23/2023 Date of : 1975 Age: 47 y.o. Patient Active Problem List Diagnosis Chest pain Hyperlipidemia Palpitation Dizziness Essential hypertension Paroxysmal atrial fibrillation (CMS-HCC) Carpal tunnel syndrome of right wrist Allergies Allergen Reactions Atorvastatin Calcium Other reaction(s): muscle aches Other reaction(s): muscle aches Flexeril [Cyclobenzaprine] Hallucinations Current Outpatient Medications Medication Sig Dispense Refill DULoxetine (CYMBALTA) 30 mg capsule Take 1 capsule (30 mg total) by mouth in the morning. lisinopriL (PRINIVIL,ZESTRIL) 20 mg tablet Take 1 tablet (20 mg total) by mouth daily. Please have labs drawn for additional refills 30 tablet 0 metoprolol tartrate (LOPRESSOR) 50 mg tablet Take 1 tablet (50 mg total) by mouth in the morning and 1 tablet (50 mg total) before bedtime. 90 tablet 3 rivaroxaban (XARELTO) 20 mg tablet tablet Take 1 tablet (20 mg total) by mouth daily. 30 tablet 1 No current facility-administered medications for this visit. Chief Complaint Patient presents with Follow-up OV F/U 1 YR ER [facility] SCHED W/PT History of Present Illness I had the opportunity to meet this 47-year-old today. He was last in the office 07/2021 Seen in ER 02/2023 with subconjunctival hemorrhage. 01/26/2023 he was seen with dizziness and elevated blood pressure. Has resolved He denies chest pain, worsening shortness of breath, syncope or presyncope He is currently working door-. He is unaccompanied today CV TESTING HISTORY: ECHO: Echo complete W/O contrast Result Date: 07/12/2021 Atrial fib-flutter rhythm Left Ventricle: Systolic function is normal with an ejection fraction of 60-65%. Aortic Valve: There is no regurgitation or stenosis. Mitral Valve: There is trace regurgitation. There is no evidence of mitral valve stenosis. Tricuspid Valve: There is trace to mild regurgitation. There is no evidence of tricuspid valve stenosis. STRESS: No results found. HOLTER: No results found. CARDIAC CATH: No results found. CAROTID: No results found. CXR: No results found. Lipid Profile: Past Medical History: Diagnosis Date Chest pain DVT (deep venous thrombosis) ([facility]) Hyperlipidemia Hypertension Seizures ([facility]) Visual impairment Past Surgical History: Procedure Laterality Date EGD N/A 03/26/2017 Performed by Armando Riley DO at [facility] EGD N/A 11/15/2016 Performed by Armando Riley DO at [facility] LEG SURGERY RELEASE CARPAL TUNNEL Left 07/10/2021 Performed by Abhay Todd DO at [facility] Family History Problem Relation Age of Onset No Known Problems Mother Heart attack Father Heart disease Father Diabetes Father Social History Socioeconomic History Marital status: Spouse name: Not on file Number of children: Not on file Years of education: Not on file Highest education level: Not on file Occupational History Not on file Tobacco Use Smoking status: Former Types: Cigarettes Quit date: 02/06/2014 Years since quittin.1 Smokeless tobacco: Never Vaping Use Vaping Use: Never used Substance and Sexual Activity Alcohol use: Not Currently Comment: quit 2013 Drug use: No Sexual activity: Defer Other Topics Concern Caffeine Use No Social History Narrative Not on file Social Determinants of Health Financial Resource Strain: Not on file Food Insecurity: No Food Insecurity (03/23/2023) Hunger Screening Food Insecurity - Worry: Never True Food Insecurity - Inability: Never True Transportation Needs: Not on file Physical Activity: Not on file Stress: Not on file Social Connections: Not on file Interpersonal Safety: Not on file Review of Systems Review of Systems Constitutional: Negative for chills, fever and malaise/fatigue. HENT: Negative for hearing loss, hoarse voice and nosebleeds. Eyes: Positive for blurred vision. Negative for double vision. Respiratory: Negative for cough, shortness of breath and wheezing. Skin: Negative for color change and rash. Musculoskeletal: Positive for back pain. Negative for joint swelling and muscle weakness. Gastrointestinal: Negative for change in bowel habit, constipation and diarrhea. Neurological: Positive for headaches. Negative for dizziness, light-headedness, loss of balance and numbness. Psychiatric/Behavioral: Negative for depression. The patient is not nervous/anxious. Allergic/Immunologic: Negative for environmental allergies. CARDIOVASCULAR: Please review HPI. Physical Examination General appearance: Alert, oriented and cooperative. In no acute distress. Pleasant Skin: Warm and dry to touch. Head: Normocephalic, without obvious abnormality, atraumatic. Ears, Nose, Mouth, Throat: Poor dentition Respiratory: Clear to auscultation bilaterally, no use of accessory muscles. Cardiovascular: RRR with normal S1 and S2 with no murmurs. Musculoskeletal: No peripheral edema. VITAL SIGNS: BP 104/70 (BP Site: Left Arm, BP Postition: Sitting) Pulse 71 Ht 190.5 cm (6' 3 ) Wt 111.1 kg (245 lb) SpO2 95% BMI 30.62 kg/m No orders of the defined types were placed in this encounter. Medications Discontinued During This Encounter Medication Reason meclizine (ANTIVERT) 25 mg tablet Therapy completed ondansetron ODT (ZOFRAN ODT) 4 mg disintegrating tablet Therapy completed IMPRESSIONS/PLAN 1. Essential hypertension - CMP; Future 2. Paroxysmal atrial fibrillation (CMS-HCC) - Event Monitor (In Office); Future - TSH; Future - CBC; Future 3. Mixed hyperlipidemia - Lipid panel; Future 1. Paroxysmal atrial Fibrillation, asymptomatic --no atrial fibrillation on wireless telemetry 07/2021 --will obtain 14 day event monitor 2. Primary hypertension, controlled 3. Hyperlipidemia --check labs 4. Normal left ventricular systolic function on 07/28 echocardiogram 5. History of venous thrombosis in bilateral lower extremities -lifelong anticoagulation, currently with Xarelto 6. Nuclear stress low risk 2017 TODAYS ORDERS Orders Placed This Encounter Procedures TSH Lipid panel CMP CBC Event Monitor (In Office) FOLLOW UP Return in about 1 year (around 03/23/2024). PCP: MARIANNA Villegas Referring Physician: MARIANNA Villegas [address] [address] documented in this encounter [employer] 03-20-2023 Miscellaneous Notes Formattin g of this note might be different from the original. Attempted to phone pt to remind of appt scheduled for 03/23/2023, vm full documented in this encounter [employer] 03-20-2023 Telephone encount er Note Attempted to phone pt to remind of appt scheduled for 03/23/2023, vm [facility] Evaluation note Encounter Date Diagnosis Assessment Notes May, SWATI (generalized anxiety disorder) (ICD-10 - F41.1) May, Essential (primary) hypertension (ICD-10 - I10) [employer] Other 10-11-2022 Procedure [facility]08-15-2022 Evaluation note* Encounter Date Diagnosis Assessment Notes Treatment Notes Treatment Clinical Notes Oct, SWATI (generalized anxiety disorder) (ICD-10 - F41.1) Oct, Essential (primary) hypertension (ICD-10 - I10) [place] [employer] Other 05-23-2022 Evaluation note* Encounter Date Diagnosis Assessment Notes Treatment Notes Treatment Clinical Notes July, SWATI (generalized anxiety disorder) (ICD-10 - F41.1) Today during the appointment we discussed depression and emotions. We talked about treatment options that include both counseling and medication interventions. When we first start treatment, it is common to have to be seen more frequently as we figure out the best treatment regimen that fits you as an individual. We will be able to space out appointments more once we find what works for you. If at any time you feel like your symptoms have increased in severity or you want to hurt yourself, please never hesitate to contact us and we will get you in to be seen. Also always know the [facility] Health Emergency Number is 24 hours a day available, even on holidays there is someone you can reach out to. Also we will check other labs yearly to screen for other health issues. Please remember we are a team and your opinion is very important in all of your healthcare decisions July, Atrial fibrillation, unspecified type (ICD-10 - I48.91) Follow up with cardiology as planned. Continue to take metroprolol and Xarelto as prescribed. [employer] [facility] Other 04-07-2022 Evaluation note* Encounter Date Diagnosis Assessment Notes Treatment Notes Treatment Clinical Notes Jun, Bilateral carpal tunnel syndrome (ICD-10 - G56.03) recommend follow up with Dr. Todd to discuss further treatment options due to this being an ongoing problem that is interfering. Jun, Degenerative disc disease, cervical (ICD-10 - M50.30) Start this medication as directed. Follow up with Dr. Todd to discuss treatment options [employer] [facility] Other 10-28-2021 Evaluation note* Encounter Date Diagnosis Assessment Notes Treatment Notes Treatment Clinical Notes Dec, Essential (primary) hypertension (ICD-10 - I10) Today during the appointment we ordered labs to check on how your kidneys are functioning since you have high blood pressure. It is important for us to make sure we protect your kidneys since vision, kidneys and blood circulation are all effected by high blood pressure. It may take us a couple of visits to get your blood pressure in a healthy range and once we do we can space them out a lot more. In addition to medication prescribed we will also talk about healthy changes you can try. Also we will check other labs yearly to screen for other issues. Please remember we are a team and your opinion is very important in all of your healthcare decisions Dec, Type 2 diabetes mellitus without complication, without long-term current use of insulin (ICD-10 - E11.9) A1C continues to lower! Keep up the good work with diet and exercise. Dec, SWATI (generalized anxiety disorder) (ICD-10 - F41.1) Today during the appointment we discussed depression and emotions. We talked about treatment options that include both counseling and medication interventions. When we first start treatment, it is common to have to be seen more frequently as we figure out the best treatment regimen that fits you as an individual. We will be able to space out appointments more once we find what works for you. If at any time you feel like your symptoms have increased in severity or you want to hurt yourself, please never hesitate to contact us and we will get you in to be seen. Also always know the [facility] Health Emergency Number is 24 hours a day available, even on holidays there is someone you can reach out to. Also we will check other labs yearly to screen for other health issues. Please remember we are a team and your opinion is very important in all of your healthcare decisions [employer] [facility] Other 10-11-2021 Evaluation note* Encounter Date Diagnosis Assessment Notes Treatment Notes Treatment Clinical Notes Dec, Arthralgia of left acromioclavicular joint (ICD-10 - M25.512) Referral sent over to ortho at this time. Patient is very frustrated with insurance company because they are not following through and communicating. with him. Encouraged that it can time to get answers sometimes. Hopefully more information will happen with this referral. [employer] [facility] Other Evaluation + Plan note No data available for this section [facility] noteNo InformationN[facility] Other Evaluation noteNo assessment information available [facility] Work Phone: Evaluation note* Diagnosis Onset Date Resolution Status Positive colorectal cancer s creening using Cologuard test acute [facility] Work Phone: Evaluation note* Diagnosis Essential hypertension- Primary Unspecified essential hypertension Paroxysmal atrial fibrillation ([facility]) Atrial fibrillation Mixed hyperlipidemia [facility] - [facility]* Type Description Date Medical History high blood pressure Medical History acid reflux Medical History Hx blood clot in bilateral legs superficial Medical History carpel tunnel Surgical History ORIF right leg Surgical History EGD Hospitalization History see above surg hx Hospitalization History chest pain low potassium 03/28 [facility] Other History general Narrative - Reported* Type Description Date Medical History high blood pressure Medical History acid reflux Medical History Hx blood clot in bilateral legs superficial Medical History carpel tunnel Medical History SWATI Surgical History ORIF right leg Surgical History EGD Hospitalization History see above surg hx Hospitalization History chest pain low potassium 03/28 [facility] Other History general Narrative - Reported* Type Description Date Medical History high blood pressure Medical History acid reflux Medical History Hx blood clot in bilateral legs superficial Medical History carpel tunnel Medical History SWATI Medical History atrial fibrillation Surgical History ORIF right leg Surgical History EGD Surgical History carpal tunnel Hospitalization History see above surg hx Hospitalization History chest pain low potassium 03/28 [place] [facility] Other Hospital Discharge instructions Additional Instructions DISCHARGE INSTRUCTIONS FOR ENDOSCOPY FOR COLONOSCOPY: -Expect a gassy or full feeling after a colonoscopy. Report any NEW abdominal pain or vomiting. -Watch for rectal bleeding if you have a polyp removed. You may have oozing, but notify the doctor if you pass clots. -Avoid aspirin for 2 days IF a polyp is removed. -It is important to keep your appointments for follow up examinations because polyps can grow back. FOR SEDATION FOR 24 HOURS: -NO driving -Do NOT operate machinery such as power tools, lawn mowers, snow blowers, sewing machines, etc. -Avoid alcoholic beverages and drugs for allergies, nerves, or sleep. -Do NOT stay alone. Do NOT leave your child unattended. -Do NOT make important personal or business decisions or sign any legal documents. -Eat solid foods and drink liquids in smaller amounts than usual until normal appetite returns. If you should experience an upset stomach, liquids high in sugar content (soda, Rg-aid, non-acid juices) are recommended. -You can resume normal activities tomorrow. FOLLOW UP Please call the office and make a follow up appointment to see me in 6-8 weeks. Resume Xarelto on -Notify the doctor if you have any problems. -Office number [phone] -Restart Xarelto on .[facility] Work Phone: Hospital Discharge instructions No data available for this section [facility] HospitalInstructionsNot on filedocumented in this encounter [facility] SystemInstructionsNot on filedocumented in this encounter [facility] No data available for this section [facility] HospitalReason for visit NarrativeFOLLOW UP [facility] DURING SURGICAL PROCEDURENortMer[facility] [employer] Other Summary Purpose Family History No Family History Records Found Relationship Condition Age at Onset Recorded Date/T dory father Cerebrovascular accident (CVA) Unknown Diabetes mellitus Unknown Myocardial infarction Unknown Not Specified Myocardial infarction Unknown grandparent Diabetes mellitus Unknown grandparent Chronic obstructive pulmonary disease Unk nown Malignant neoplasm of lung Unknown Advance Directives No Advanced Directives Records Found Advance Directive Response Recorded Date/ Time Advance Directives No January 10:04am Latest Code Status on File Code Status Date Activated Date Inactivated Comments Full Code 07/10/2021 10:24 PM 07/11/2021 8:16 PM Latest Code Status on File Code Status Date Activated Date Inactivated Comments Full Code 07/10/2021 10:24 PM 07/11/2021 8:16 PM Reason for Referral Reason patient has his tory of left shoulder pain - Diagnosis 1 Arthralgia of left a cromioclavicular joint (M25.512) Referral Organization [facility] Referring Provider First Name Lana Referring Provider Last Name Ramy Referring Provider Specialty Nurse Pract itioner Referred Organization [facility] Referred Provider Abhay Todd Referred Address ,[place], [place],[address] Referred Provider Specialty Orthopedic S urgery Referral Priority Routine General Notes Cindy Phillips 021 09:23:05 AM >Received today and waiting for office notes to be locked Specialty Diagnoses / Procedures Referred By Anika fernandez Referred To Contact Diagnoses Paroxysmal atrial fibrillation ([facility]) Procedures Event Monitor (In Office) Rasta Rapp MD [address] [place] [address] Referral ID Status Reason Start Date Expiration Date V isits Requested Visits Authorized [id number] Pending Review 03/23/2023 03/22/2024 1 1 Chief Complaint and Reason for Visit Chief Complaint Positive Cologuard Chief Complaint Positive Cologuard Positive Cologuard Chief Complaint Positive Cologuard Positive Cologuard Positive Cologuard Reason for Visit Positive colorectal cancer screening using Cologuard test Additional Source Comments (unrecognized sect ion and content) No Status Records FoundNo Status Records FoundNo Status Records FoundNo Status Records FoundNo Status Records FoundNo Status Records FoundNo Status Records FoundNo Status Records FoundNo Status Records FoundNo Status Records Found INFORMATION SOURCE (unrecogn ized section and content) DATE CREATED AUTHOR 08/25/2018 [facility] DATE CREATED AUTHOR AUTHOR'S ORGANIZ ATION 03/29/2019 [facility] DATE CREATED AUTHOR AUTHOR'S ORGANIZ ATION 01/12/2020 [facility] DATE CREATED AUTHOR AUTHOR'S ORGANIZ ATION 10/21/2020 [facility] DATE CREATED AUTHOR AUTHOR'S ORGANIZ ATION 12/18/2021 [facility] DATE CREATED AUTHOR AUTHOR'S ORGANIZ ATION 12/03/2023 [facility] Erath [facility] DATE CREATED AUTHOR AUTHOR'S ORGANIZ ATION 12/04/2023 Thur[facility] Braydon [facility] DATE CREATED AUTHOR AUTHOR'S ORGANIZ ATION 12/06/2023 Thur[facility] Braydon [facility] DATE CREATED AUTHOR AUTHOR'S ORGANIZ ATION 12/12/2023 [facility] REASON FOR VISIT (unrecogniz ed section and content) Reason Comments Follow-up OV F/U 1 YR ER [facility] W/PT Care Teams (unrecognized sec tion and content) Team Status: Inactive Member Role Status Dates [place] Villegas Primary Care Provider Active Waqar Angulo MD Attending Provider Active Team Status: Active Member Role Status Dates [place] Villegas Primary Care Provider Active Shift Supervisor Rn Relationship Specialty Start Date End Date Lana Sherman APRN-FNP [address] [address] PCP - General Family Medicine 09/02/22 Shift Supervisor Rn Relationship Specialty Start Date End Date Lana Sherman APRN-FNP [address] [address] PCP - General Family Medicine 09/02/22 Goals (unrecognized section and content) Goals may be documented in a n alternate section FOR RECORDS PERTAINING TO PATIENTS WHO ARE OR HAVE BEEN ENROLLED IN A CHEMICAL DEPENDENCY/SUBSTANCEABUSE PROGRAM, SOME INFORMATION MAY BE OMITTED. This clinical summary was aggregated from multiple sources. Caution should be exercised in using it in the provision of clinical care. This summary normalizes information from multiple sources, and as a consequence, information in this document may materially change the coding, format and clinical context of patient data. In addition, data may be omitted in some cases. CLINICAL DECISIONS SHOULD BE BASED ON THE PRIMARY CLINICAL RECORDS. [facility]. provides no warranty or guarantee of the accuracy or completeness of information in this document.
[2024-04-14 23:05] VITALS: BP 155/102; PULSE 94; TEMP 37.5; O2SAT 97; BMI 29.7
[2024-04-14 23:17] VITALS: BP 157/97
--- NOTE | 2024-04-14 23:20 | ED.URI1 ---
HPI - URI/Sore Throat General Chief Complaint: Upper Respiratory Infection Stated Complaint: Upper Respiratory Infection Time Seen by Provider: 04/14/24 22:55 Source: patient History of Present Illness HPI Narrative: 48-year-old male presents to the emergency department for sore throat and cough. He began getting sick yesterday. He states that there is some COVID cases where he works, and the [facility]. No vomiting or diarrhea and he did not have a fever at triage. Related Data Home Medications ?Medication ?Instructions ?Recorded ?Confirmed duloxetine 60 mg capsule,delayed 60 mg PO QDAY 12/11/23 04/14/24 release empagliflozin 10 mg tablet 10 mg PO QDAY 12/11/23 04/14/24 (Jardiance) lisinopril 20 mg tablet 20 mg PO QDAY 12/11/23 04/14/24 metoprolol tartrate 50 mg tablet 50 mg PO BID 12/11/23 04/14/24 rivaroxaban 20 mg tablet (Xarelto) 20 mg PO Q24H 12/11/23 04/14/24 Allergies Allergy/AdvReac Type Severity Reaction Status Date / Time muscle relaxers Allergy Hallucinati Uncoded 12/11/23 13:06 ng Review of Systems ROS Narrative A ten point review of systems is negative except as noted above. PFSH PFSH Social History Little interest or pleasure in doing things: not at all Feeling down, depressed, or hopeless: not at all Exam Narrative Exam Narrative: Nurses note and vital signs reviewed and patient is not hypoxic. General: The patient appears in no apparent distress. Patient is resting comfortably on cart. Skin: Warm, dry, no pallor noted. There is no rash noted. Head: Normocephalic, atraumatic Eye: Normal conjunctiva, no drainage Ears, Nose, Mouth, and Throat: oral mucosa is moist. Nares patent. No pharyngeal erythema or exudate Cardiovascular: Regular Rate and Rhythm Respiratory: Patient is in no distress, no accessory muscle use, lungs are clear to auscultation, no wheezing, rales or rhonchi Back: non-tender GI: Soft and nontender Musculoskeletal: The patient has no evidence of calf tenderness, no pitting edema, symmetrical pulses noted bilaterally Neurological: A&O, normal speech Psychiatric: Cooperative Constitutional Vital Signs, click to edit/add: Last Vital Signs Temp 99.5 F 04/14/24 23:05 Pulse 94 H 04/14/24 23:05 Resp 16 04/14/24 23:05 BP 157/97 H 04/14/24 23:17 Pulse Ox 97 04/14/24 23:05 O2 Del Method Room Air 04/14/24 23:05 Course Vital Signs Vital signs: Vital Signs Temperature 99.5 F 04/14/24 23:05 Pulse Rate 94 H 04/14/24 23:05 Respiratory Rate 16 04/14/24 23:05 Blood Pressure 155/102 H 04/14/24 23:05 Pulse Oximetry 97 04/14/24 23:05 Oxygen Delivery Method Room Air 04/14/24 23:05 Temperature 99.5 F 04/14/24 23:05 Pulse Rate 94 H 04/14/24 23:05 Respiratory Rate 16 04/14/24 23:05 Blood Pressure 157/97 H 04/14/24 23:17 Pulse Oximetry 97 04/14/24 23:05 Oxygen Delivery Method Room Air 04/14/24 23:05 MDM - URI/Sore Throat MDM Narrative Medical decision making narrative: COVID, influenza, and strep are all negative. My clinical impression is that he has a viral URI. Antibiotic not indicated. Treatment diagnosis and follow-up were discussed with the patient. Differential Diagnosis Differential diagnosis: Likely upper respiratory infection, viral infection, influenza and other (COVID, strep throat) Lab Data Attestation: I reviewed the patient's lab results. Labs: Lab Results 04/14/24 04/14/24 Range/Units 23:01 23:22 Influenza Type A Ag Negative Influenza Type B Ag Negative SARS-CoV-2 Ag (CV2AG) Negative (NEGATIVE) Streptococcus Screen Negative Discharge Plan Discharge Chief Complaint: Upper Respiratory Infection Clinical Impression: Upper respiratory infection Patient Disposition: Home, Self-Care Time of Disposition Decision: 23:48 Condition: Good Mode of Transportation: Private Vehicle Prescriptions / Home Meds: No Action duloxetine 60 mg capsule,delayed release(DR/EC) 60 mg PO QDAY Jardiance 10 mg tablet 10 mg PO QDAY lisinopril 20 mg tablet 20 mg PO QDAY metoprolol tartrate 50 mg tablet 50 mg PO BID Xarelto 20 mg tablet 20 mg PO Q24H Print Language: Upper Sorbian Instructions: Upper Respiratory Infection (ED) Referrals: Physician,Non-Staff, [Primary Care Provider] - 1 week
[2024-04-14 23:23] LABS: Influenza Virus A Antigen Negative; Influenza Virus B Antigen Negative; Internal Control Within Normal Limits
[2024-04-14 23:24] LABS: Internal Control Within Normal Limits; SARS-CoV-2 Ag NEGATIVE (NEGATIVE)
[2024-04-14 23:43] LABS: Internal Control Within Normal Limits; Strep A Antigen Screen Negative
[2024-04-14 23:56] VITALS: TEMP 37.3; O2SAT 98
== END 2024-04-14 23:59 | disposition home or self-care (01) ==
PROVIDERS: Emergency Provider Emergency Medicine
DX: J06.9 Acute upper respiratory infection, unspecified (principal)
CPT/HCPCS: 87070; 87804; 87811; 87880; 99283